=== PATIENT | female | born 1970 | race Caucasian/White ===

== ENCOUNTER 2020-01-21 11:37 | Outpatient (REF) | payer OTHER, SELFPAY ==
[2020-01-21 12:42] LABS: MANUAL DIFF FLAG NO
[2020-01-21 12:45] LABS: Basophils Percent Auto 0.6 % (0-2); Eosinophils Absolute Auto 0.1 X10*3/uL (0.0-0.4); Hematocrit 40.3 % (37-47); Hemoglobin 13.5 g/dl (12.0-16.0); Imm Gran Abs Auto 0.04 X10*3/uL (0.00-0.03); Imm Gran Pct Auto 0.6 % (0.0-0.4); Lymphocytes Absolute Auto 2.4 X10*3/uL (1.2-4.9); Lymphocytes Percent Auto 34.6 % (20-40); Mean Corpuscular HGB Conc 33.5 g/dl (31.0-35.0); Mean Corpuscular Hemoglobin 31.8 pg (27.0-33.0); Mean Corpuscular Volume 94.8 fL (80-98); Mean Platelet Volume 10.6 fL (9.4-12.3); Monocytes Absolute Auto 0.6 X10*3/uL (0.1-1.2); Monocytes Percent Auto 8.4 % (2-11); Neutrophils Absolute Auto 3.9 X10*3/uL (2.0-8.3); Neutrophils Percent Auto 54.8 % (45-73); Platelet Count 205 X10*3/uL (160-400); Red Blood Count 4.25 X10*6/uL (4.20-5.50); Red Cell Distribution Width 14.5 % (11.0-16.0)
[2020-01-21 13:12] LABS: Valproate 61.8 mcg/mL (50.0-100.0)
[2020-01-21 13:17] LABS: Alanine Aminotransferase 13 U/L (0-31); Albumin Level 4.1 g/dL (3.5-5.0); Alkaline Phosphatase 55 U/L (39-117); Amylase 74 U/L (28-100); Anion Gap 12 (12-20); Aspartate Amino Transferase 20 U/L (5-31); Bilirubin Total 0.4 mg/dL (0.0-1.0); Blood Urea Nitrogen 9 mg/dL (9-16); Calcium 9.2 mg/dL (8.4-10.2); Carbon Dioxide 30 mmol/L (22-29); Chloride 101 mmol/L (96-108); Estimated Glomerular Filt Rate > 60; Glucose Random 72 mg/dL (60-115); Potassium 4.6 mmol/l (3.3-5.1); Sodium 138 mmol/L (135-145); Total Protein 6.7 g/dL (6.5-8.0)
== END 2020-01-21 11:38 | disposition home or self-care (01) ==
LOC: HO.LAB 11:37
PROVIDERS: PCP Internal Medicine; Visit Provider Clinical Nurse Specialist Psychiatric/Mental Health, Adult
DX: Z79.899 Other long term (current) drug therapy (principal)
CPT/HCPCS: 36415; 80053; 80164; 82150; 85025

== ENCOUNTER 2020-03-19 09:34 | Outpatient (REF) | payer OTHER, SELFPAY ==
[2020-03-19 10:28] LABS: MANUAL DIFF FLAG NO
[2020-03-19 10:42] LABS: Basophils Absolute Auto 0.1 X10*3/uL (0.0-0.2); Basophils Percent Auto 0.7 % (0-2); Eosinophils Absolute Auto 0.1 X10*3/uL (0.0-0.4); Eosinophils Percent Auto 1.3 % (0-4); Hematocrit 41.5 % (37-47); Hemoglobin 13.8 g/dl (12.0-16.0); Imm Gran Abs Auto 0.04 X10*3/uL (0.00-0.03); Imm Gran Pct Auto 0.6 % (0.0-0.4); Lymphocytes Absolute Auto 1.9 X10*3/uL (1.2-4.9); Lymphocytes Percent Auto 26.6 % (20-40); Mean Corpuscular HGB Conc 33.3 g/dl (31.0-35.0); Mean Corpuscular Hemoglobin 31.3 pg (27.0-33.0); Mean Corpuscular Volume 94.1 fL (80-98); Mean Platelet Volume 10.9 fL (9.4-12.3); Monocytes Absolute Auto 0.6 X10*3/uL (0.1-1.2); Monocytes Percent Auto 8.8 % (2-11); Neutrophils Absolute Auto 4.4 X10*3/uL (2.0-8.3); Platelet Count 224 X10*3/uL (160-400); Red Blood Count 4.41 X10*6/uL (4.20-5.50); Red Cell Distribution Width 14.5 % (11.0-16.0); White Blood Count 7.1 X10*3/uL (4.8-10.8)
[2020-03-23 09:22] LABS: Clozapine (Clozaril) 117 mcg/L; Norclozapine 42 mcg/L (25-400)
== END 2020-03-19 09:35 | disposition home or self-care (01) ==
LOC: HO.LABR 09:34
PROVIDERS: PCP Internal Medicine; Visit Provider Clinical Nurse Specialist Psychiatric/Mental Health, Adult
DX: Z79.899 Other long term (current) drug therapy (principal)
CPT/HCPCS: 36415; 80159; 85025

== ENCOUNTER → 2020-04-13 09:36 | Outpatient (BNVA) | payer OTHER, SELFPAY | PROVIDERS: PCP Internal Medicine; Visit Provider Nurse Practitioner Gerontology | DX: E11.9 Type 2 diabetes mellitus without complications (principal); Z79.4 Long term (current) use of insulin; E78.5 Hyperlipidemia, unspecified; I10 Essential (primary) hypertension; E66.09 Other obesity due to excess calories; Z68.33 Body mass index [BMI] 33.0-33.9, adult | CPT/HCPCS: 82947 ==

== ENCOUNTER 2020-04-29 12:54 | Outpatient (REF) | payer OTHER, SELFPAY ==
[2020-04-29 13:19] LABS: MANUAL DIFF FLAG NO
[2020-04-29 13:25] LABS: Basophils Absolute Auto 0.1 X10*3/uL (0.0-0.2); Basophils Percent Auto 0.6 % (0-2); Eosinophils Absolute Auto 0.1 X10*3/uL (0.0-0.4); Eosinophils Percent Auto 1.1 % (0-4); Hematocrit 41.1 % (37-47); Hemoglobin 13.1 g/dl (12.0-16.0); Imm Gran Abs Auto 0.08 X10*3/uL (0.00-0.03); Lymphocytes Absolute Auto 2.6 X10*3/uL (1.2-4.9); Lymphocytes Percent Auto 33.3 % (20-40); Mean Corpuscular HGB Conc 31.9 g/dl (31.0-35.0); Mean Corpuscular Hemoglobin 30.7 pg (27.0-33.0); Mean Corpuscular Volume 96.3 fL (80-98); Mean Platelet Volume 10.6 fL (9.4-12.3); Monocytes Absolute Auto 0.7 X10*3/uL (0.1-1.2); Monocytes Percent Auto 8.2 % (2-11); Neutrophils Absolute Auto 4.4 X10*3/uL (2.0-8.3); Neutrophils Percent Auto 55.8 % (45-73); Platelet Count 227 X10*3/uL (160-400); Red Blood Count 4.27 X10*6/uL (4.20-5.50); Red Cell Distribution Width 14.6 % (11.0-16.0); White Blood Count 7.9 X10*3/uL (4.8-10.8)
== END 2020-04-29 12:55 | disposition home or self-care (01) ==
LOC: HO.LAB 12:54
PROVIDERS: Visit Provider Clinical Nurse Specialist Psychiatric/Mental Health, Adult
DX: Z79.899 Other long term (current) drug therapy (principal)
CPT/HCPCS: 36415; 85025

== ENCOUNTER 2020-05-26 08:49 | Outpatient (REF) | payer OTHER, SELFPAY ==
[2020-05-26 09:20] LABS: MANUAL DIFF FLAG NO
[2020-05-26 09:26] LABS: Basophils Percent Auto 0.6 % (0-2); Eosinophils Absolute Auto 0.1 X10*3/uL (0.0-0.4); Eosinophils Percent Auto 1.4 % (0-4); Hematocrit 42.8 % (37-47); Hemoglobin 13.8 g/dl (12.0-16.0); Imm Gran Abs Auto 0.06 X10*3/uL (0.00-0.03); Imm Gran Pct Auto 0.9 % (0.0-0.4); Lymphocytes Percent Auto 28.4 % (20-40); Mean Corpuscular HGB Conc 32.2 g/dl (31.0-35.0); Mean Corpuscular Hemoglobin 30.6 pg (27.0-33.0); Mean Corpuscular Volume 94.9 fL (80-98); Mean Platelet Volume 10.8 fL (9.4-12.3); Monocytes Absolute Auto 0.6 X10*3/uL (0.1-1.2); Monocytes Percent Auto 8.9 % (2-11); Neutrophils Absolute Auto 4.1 X10*3/uL (2.0-8.3); Neutrophils Percent Auto 59.8 % (45-73); Platelet Count 235 X10*3/uL (160-400); Red Blood Count 4.51 X10*6/uL (4.20-5.50); Red Cell Distribution Width 14.5 % (11.0-16.0); White Blood Count 6.9 X10*3/uL (4.8-10.8)
== END 2020-05-26 08:50 | disposition home or self-care (01) ==
LOC: HO.LAB 08:49
PROVIDERS: Visit Provider Clinical Nurse Specialist Psychiatric/Mental Health, Adult
DX: Z79.899 Other long term (current) drug therapy (principal)
CPT/HCPCS: 36415; 85025

== ENCOUNTER 2020-07-01 09:00 | Outpatient (REF) | payer OTHER, SELFPAY ==
[2020-07-01 09:51] LABS: MANUAL DIFF FLAG NO
[2020-07-01 09:53] LABS: Basophils Percent Auto 0.5 % (0-2); Eosinophils Absolute Auto 0.1 X10*3/uL (0.0-0.4); Eosinophils Percent Auto 0.8 % (0-4); Hematocrit 43.7 % (37-47); Hemoglobin 14.4 g/dl (12.0-16.0); Imm Gran Abs Auto 0.06 X10*3/uL (0.00-0.03); Imm Gran Pct Auto 0.8 % (0.0-0.4); Lymphocytes Absolute Auto 1.9 X10*3/uL (1.2-4.9); Mean Corpuscular Volume 94.2 fL (80-98); Mean Platelet Volume 10.7 fL (9.4-12.3); Monocytes Absolute Auto 0.6 X10*3/uL (0.1-1.2); Neut%MD 64.9 %; Neutrophils Percent Auto 64.9 % (45-73); Platelet Count 238 X10*3/uL (160-400); Red Blood Count 4.64 X10*6/uL (4.20-5.50); Red Cell Distribution Width 13.9 % (11.0-16.0); WBCANC 7.7 X10*3/uL; White Blood Count 7.7 X10*3/uL (4.8-10.8)
[2020-07-01 10:05] LABS: Estimated Average Glucose 169 mg/dL; Hemoglobin A1c % 7.5 %
[2020-07-01 10:46] LABS: Alanine Aminotransferase 14 U/L (0-31); Albumin Level 4.4 g/dL (3.5-5.0); Alkaline Phosphatase 81 U/L (39-117); Anion Gap 16 (12-20); Aspartate Amino Transferase 21 U/L (5-31); Bilirubin Total 0.2 mg/dL (0.0-1.0); Blood Urea Nitrogen 14 mg/dL (9-16); Calcium 9.7 mg/dL (8.4-10.2); Carbon Dioxide 29 mmol/L (22-29); Chloride 100 mmol/L (96-108); Cholesterol 181 mg/dL; Estimated Glomerular Filt Rate > 60; Glucose Fasting 133 mg/dL (60-99); HDL Cholesterol 47 mg/dL; LDL Cholesterol Calculated 98 mg/dl; Potassium 4.9 mmol/L (3.3-5.1); Sodium 140 mmol/L (135-145); Total Protein 7.2 g/dL (6.5-8.0); Triglycerides 180 mg/dL
[2020-07-02 06:56] LABS: LDL Cholesterol Direct 117 mg/dL (<100)
== END 2020-07-01 09:01 | disposition home or self-care (01) ==
LOC: HO.LAB 09:00
PROVIDERS: Absent Provider Clinical Nurse Specialist Psychiatric/Mental Health, Adult; PCP Internal Medicine; Visit Provider Nurse Practitioner Gerontology
DX: E11.9 Type 2 diabetes mellitus without complications (principal); Z79.899 Other long term (current) drug therapy
CPT/HCPCS: 36415; 80053; 80061; 83036; 83721; 85025; 85048

== ENCOUNTER → 2020-07-13 10:14 | Outpatient (BNVA) | payer OTHER, SELFPAY | PROVIDERS: PCP Internal Medicine; Visit Provider Nurse Practitioner Gerontology | DX: E11.9 Type 2 diabetes mellitus without complications (principal); Z79.4 Long term (current) use of insulin; E78.5 Hyperlipidemia, unspecified; I10 Essential (primary) hypertension; E66.09 Other obesity due to excess calories; Z68.33 Body mass index [BMI] 33.0-33.9, adult | CPT/HCPCS: 82947; 99212 ==

== ENCOUNTER 2020-07-21 10:21 | Outpatient (REF) | payer OTHER, SELFPAY ==
[2020-07-21 10:35] LABS: MANUAL DIFF FLAG NO
[2020-07-21 10:43] LABS: Basophils Absolute Auto 0.1 X10*3/uL (0.0-0.2); Basophils Percent Auto 0.6 % (0-2); Eosinophils Absolute Auto 0.1 X10*3/uL (0.0-0.4); Eosinophils Percent Auto 0.8 % (0-4); Hematocrit 42.2 % (37-47); Hemoglobin 13.5 g/dl (12.0-16.0); Imm Gran Abs Auto 0.11 X10*3/uL (0.00-0.03); Imm Gran Pct Auto 1.3 % (0.0-0.4); Lymphocytes Absolute Auto 2.5 X10*3/uL (1.2-4.9); Lymphocytes Percent Auto 29.7 % (20-40); Mean Corpuscular Hemoglobin 30.2 pg (27.0-33.0); Mean Corpuscular Volume 94.4 fL (80-98); Mean Platelet Volume 10.3 fL (9.4-12.3); Monocytes Absolute Auto 0.7 X10*3/uL (0.1-1.2); Monocytes Percent Auto 7.8 % (2-11); Neut%MD 59.8 %; Neutrophils Absolute Auto 5.1 X10*3/uL (2.0-8.3); Neutrophils Percent Auto 59.8 % (45-73); Platelet Count 225 X10*3/uL (160-400); Red Blood Count 4.47 X10*6/uL (4.20-5.50); Red Cell Distribution Width 13.9 % (11.0-16.0); WBCANC 8.5 X10*3/uL; White Blood Count 8.5 X10*3/uL (4.8-10.8)
== END 2020-07-21 10:22 | disposition home or self-care (01) ==
LOC: HO.LABR 10:21
PROVIDERS: PCP Internal Medicine; Visit Provider Clinical Nurse Specialist Psychiatric/Mental Health, Adult
DX: Z79.899 Other long term (current) drug therapy (principal)
CPT/HCPCS: 36415; 85025; 85048

== ENCOUNTER 2020-08-18 09:54 | Outpatient (REF) | payer OTHER, SELFPAY ==
[2020-08-18 11:25] LABS: MANUAL DIFF FLAG NO
[2020-08-18 11:36] LABS: Basophils Percent Auto 0.6 % (0-2); Eosinophils Absolute Auto 0.1 X10*3/uL (0.0-0.4); Hematocrit 43.1 % (37-47); Imm Gran Abs Auto 0.08 X10*3/uL (0.00-0.03); Imm Gran Pct Auto 1.2 % (0.0-0.4); Lymphocytes Absolute Auto 1.8 X10*3/uL (1.2-4.9); Lymphocytes Percent Auto 26.9 % (20-40); Mean Corpuscular HGB Conc 32.5 g/dl (31.0-35.0); Mean Corpuscular Volume 95.4 fL (80-98); Mean Platelet Volume 10.7 fL (9.4-12.3); Monocytes Absolute Auto 0.7 X10*3/uL (0.1-1.2); Monocytes Percent Auto 10.3 % (2-11); NRBC Pct Auto 0.3 /100WBC (0.0-0.2); Platelet Count 234 X10*3/uL (160-400); Red Blood Count 4.52 X10*6/uL (4.20-5.50); WBCANC 6.7 X10*3/uL; White Blood Count 6.7 X10*3/uL (4.8-10.8)
[2020-08-18 12:20] LABS: Vitamin D 25-OH Total 41.9 ng/mL (>30)
== END 2020-08-18 09:55 | disposition home or self-care (01) ==
LOC: HO.HMGCLDS 09:54
PROVIDERS: Absent Provider Nurse Practitioner Gerontology; PCP Internal Medicine; Referring Provider Clinical Nurse Specialist Psychiatric/Mental Health, Adult; Visit Provider Internal Medicine
DX: Z79.899 Other long term (current) drug therapy (principal)
CPT/HCPCS: 36415; 82306; 85025; 85048

== ENCOUNTER → 2020-08-31 10:57 | Outpatient (BNVA) | payer OTHER, SELFPAY | PROVIDERS: PCP Internal Medicine; Visit Provider Dietitian, Registered | DX: E11.65 Type 2 diabetes mellitus with hyperglycemia (principal); Z79.4 Long term (current) use of insulin | CPT/HCPCS: 97802 ==

== ENCOUNTER 2020-09-07 14:02 | Outpatient (REF) | payer OTHER, SELFPAY ==
--- NOTE | 2020-09-07 17:12 | PFT_ITS ---
The patient was unable to perform FVC maneuver in first two attempts, and the patient did not want to continue the test. The test has been aborted. IMPRESSION: Aborted pulmonary function test. MD SANDRO Diop/DEYVI / [phone]
== END 2020-09-07 14:03 | disposition home or self-care (01) ==
LOC: HO.RESP 14:02
PROVIDERS: PCP Nurse Practitioner Family; Visit Provider Internal Medicine
DX: Z13.89 Encounter for screening for other disorder (principal)

== ENCOUNTER 2020-09-23 10:03 | Outpatient (REF) | payer OTHER, SELFPAY ==
[2020-09-23 10:35] LABS: MANUAL DIFF FLAG NO
[2020-09-23 10:39] LABS: Basophils Percent Auto 0.6 % (0-2); Eosinophils Absolute Auto 0.1 X10*3/uL (0.0-0.4); Eosinophils Percent Auto 0.8 % (0-4); Hematocrit 45.2 % (37-47); Hemoglobin 14.6 g/dl (12.0-16.0); Imm Gran Abs Auto 0.05 X10*3/uL (0.00-0.03); Imm Gran Pct Auto 0.7 % (0.0-0.4); Lymphocytes Absolute Auto 2.1 X10*3/uL (1.2-4.9); Mean Corpuscular HGB Conc 32.3 g/dl (31.0-35.0); Mean Corpuscular Hemoglobin 30.5 pg (27.0-33.0); Mean Corpuscular Volume 94.4 fL (80-98); Mean Platelet Volume 10.7 fL (9.4-12.3); Monocytes Absolute Auto 0.6 X10*3/uL (0.1-1.2); Monocytes Percent Auto 7.8 % (2-11); Neutrophils Absolute Auto 4.3 X10*3/uL (2.0-8.3); Neutrophils Percent Auto 61.1 % (45-73); Platelet Count 231 X10*3/uL (160-400); Red Blood Count 4.79 X10*6/uL (4.20-5.50); White Blood Count 7.1 X10*3/uL (4.8-10.8)
== END 2020-09-23 10:04 | disposition home or self-care (01) ==
LOC: HO.LABR 10:03
PROVIDERS: PCP Internal Medicine; Visit Provider Clinical Nurse Specialist Psychiatric/Mental Health, Adult
DX: Z79.899 Other long term (current) drug therapy (principal)
CPT/HCPCS: 36415; 85025

== ENCOUNTER 2020-10-20 09:01 | Outpatient (REF) | payer OTHER, SELFPAY ==
[2020-10-20 11:12] LABS: MANUAL DIFF FLAG NO
[2020-10-20 11:31] LABS: Basophils Percent Auto 0.3 % (0-2); Eosinophils Absolute Auto 0.1 X10*3/uL (0.0-0.4); Eosinophils Percent Auto 0.8 % (0-4); Hematocrit 46.1 % (37-47); Hemoglobin 14.7 g/dl (12.0-16.0); Imm Gran Abs Auto 0.05 X10*3/uL (0.00-0.03); Imm Gran Pct Auto 0.8 % (0.0-0.4); Lymphocytes Absolute Auto 1.7 X10*3/uL (1.2-4.9); Lymphocytes Percent Auto 25.5 % (20-40); Mean Corpuscular HGB Conc 31.9 g/dl (31.0-35.0); Mean Corpuscular Hemoglobin 30.2 pg (27.0-33.0); Mean Corpuscular Volume 94.9 fL (80-98); Mean Platelet Volume 11.3 fL (9.4-12.3); Monocytes Absolute Auto 0.6 X10*3/uL (0.1-1.2); Monocytes Percent Auto 8.7 % (2-11); Neutrophils Absolute Auto 4.2 X10*3/uL (2.0-8.3); Neutrophils Percent Auto 63.9 % (45-73); Platelet Count 244 X10*3/uL (160-400); Red Blood Count 4.86 X10*6/uL (4.20-5.50); Red Cell Distribution Width 14.9 % (11.0-16.0); White Blood Count 6.6 X10*3/uL (4.8-10.8)
== END 2020-10-20 09:02 | disposition home or self-care (01) ==
LOC: HO.HMGCLDS 09:01
PROVIDERS: PCP Internal Medicine; Visit Provider Clinical Nurse Specialist Psychiatric/Mental Health, Adult
DX: Z79.899 Other long term (current) drug therapy (principal)
CPT/HCPCS: 36415; 85025

== ENCOUNTER → 2020-11-02 11:00 | Outpatient (BNVA) | payer OTHER, SELFPAY | PROVIDERS: PCP Internal Medicine; Visit Provider Dietitian, Registered | DX: E11.65 Type 2 diabetes mellitus with hyperglycemia (principal); Z79.4 Long term (current) use of insulin | CPT/HCPCS: 97803 ==

== ENCOUNTER 2020-11-17 10:15 | Outpatient (REF) | payer OTHER, SELFPAY ==
[2020-11-17 11:09] LABS: MANUAL DIFF FLAG NO
[2020-11-17 11:22] LABS: Basophils Percent Auto 0.4 % (0-2); Eosinophils Percent Auto 0.6 % (0-4); Hemoglobin 14.5 g/dl (12.0-16.0); Imm Gran Abs Auto 0.02 X10*3/uL (0.00-0.03); Imm Gran Pct Auto 0.3 % (0.0-0.4); Lymphocytes Absolute Auto 1.9 X10*3/uL (1.2-4.9); Lymphocytes Percent Auto 28.1 % (20-40); Mean Corpuscular Hemoglobin 30.6 pg (27.0-33.0); Mean Corpuscular Volume 92.8 fL (80-98); Mean Platelet Volume 10.8 fL (9.4-12.3); Monocytes Absolute Auto 0.6 X10*3/uL (0.1-1.2); Monocytes Percent Auto 8.2 % (2-11); Neutrophils Absolute Auto 4.2 X10*3/uL (2.0-8.3); Neutrophils Percent Auto 62.4 % (45-73); Platelet Count 227 X10*3/uL (160-400); Red Blood Count 4.74 X10*6/uL (4.20-5.50); Red Cell Distribution Width 14.7 % (11.0-16.0); White Blood Count 6.7 X10*3/uL (4.8-10.8)
[2020-11-17 12:39] LABS: Alanine Aminotransferase 13 U/L (0-31); Anion Gap 11 (12-20); Aspartate Amino Transferase 19 U/L (5-31); Blood Urea Nitrogen 13 mg/dL (9-16); Calcium 9.4 mg/dL (8.4-10.2); Carbon Dioxide 26 mmol/L (22-29); Chloride 104 mmol/L (96-108); Cholesterol 125 mg/dL; Estimated Glomerular Filt Rate > 60; HDL Cholesterol 41 mg/dL; LDL Cholesterol Calculated 70 mg/dl; Potassium 4.8 mmol/L (3.3-5.1); Sodium 136 mmol/L (135-145); Triglycerides 71 mg/dL
[2020-11-17 12:41] LABS: Glucose Fasting 61 mg/dL (60-99)
== END 2020-11-17 10:16 | disposition home or self-care (01) ==
LOC: HO.LABR 10:15
PROVIDERS: PCP Internal Medicine; Visit Provider Clinical Nurse Specialist Psychiatric/Mental Health, Adult
DX: Z79.899 Other long term (current) drug therapy (principal)
CPT/HCPCS: 36415; 80048; 80061; 84450; 84460; 85025

== ENCOUNTER → 2020-12-03 09:22 | Outpatient (BNVA) | payer OTHER, SELFPAY | PROVIDERS: PCP Internal Medicine; Visit Provider Nurse Practitioner Gerontology | DX: E11.65 Type 2 diabetes mellitus with hyperglycemia (principal); E11.9 Type 2 diabetes mellitus without complications; E11.3599 Type 2 diabetes mellitus with proliferative diabetic retinopathy without macular edema, unspecified eye; I10 Essential (primary) hypertension; E78.5 Hyperlipidemia, unspecified; E66.09 Other obesity due to excess calories; K21.9 Gastro-esophageal reflux disease without esophagitis; F17.210 Nicotine dependence, cigarettes, uncomplicated; Z68.32 Body mass index [BMI] 32.0-32.9, adult; Z88.7 Allergy status to serum and vaccine; Z88.8 Allergy status to other drugs, medicaments and biological substances; Z91.040 Latex allergy status; Z91.013 Allergy to seafood; Z79.4 Long term (current) use of insulin; Z79.899 Other long term (current) drug therapy | CPT/HCPCS: 82947; 99212 ==

== ENCOUNTER 2020-12-20 09:28 | Outpatient (REF) | payer OTHER, SELFPAY ==
[2020-12-20 10:29] LABS: MANUAL DIFF FLAG NO
[2020-12-20 10:48] LABS: Basophils Percent Auto 0.5 % (0-2); Eosinophils Percent Auto 0.3 % (0-4); Hematocrit 43.7 % (37-47); Hemoglobin 14.7 g/dl (12.0-16.0); Imm Gran Abs Auto 0.05 X10*3/uL (0.00-0.03); Imm Gran Pct Auto 0.6 % (0.0-0.4); Lymphocytes Absolute Auto 2.2 X10*3/uL (1.2-4.9); Lymphocytes Percent Auto 25.1 % (20-40); Mean Corpuscular HGB Conc 33.6 g/dl (31.0-35.0); Mean Corpuscular Hemoglobin 31.1 pg (27.0-33.0); Mean Corpuscular Volume 92.4 fL (80-98); Mean Platelet Volume 10.6 fL (9.4-12.3); Monocytes Absolute Auto 0.7 X10*3/uL (0.1-1.2); Monocytes Percent Auto 8.3 % (2-11); Neutrophils Absolute Auto 5.7 X10*3/uL (2.0-8.3); Neutrophils Percent Auto 65.2 % (45-73); Platelet Count 241 X10*3/uL (160-400); Red Blood Count 4.73 X10*6/uL (4.20-5.50); Red Cell Distribution Width 15.3 % (11.0-16.0); White Blood Count 8.7 X10*3/uL (4.8-10.8)
== END 2020-12-20 09:29 | disposition home or self-care (01) ==
LOC: HO.LABR 09:28
PROVIDERS: PCP Internal Medicine; Visit Provider Clinical Nurse Specialist Psychiatric/Mental Health, Adult
DX: Z79.899 Other long term (current) drug therapy (principal)
CPT/HCPCS: 36415; 85025

== ENCOUNTER → 2021-01-04 11:00 | Outpatient (BNVA) | payer OTHER, SELFPAY | PROVIDERS: PCP Internal Medicine; Visit Provider Dietitian, Registered | DX: E11.65 Type 2 diabetes mellitus with hyperglycemia (principal); Z79.4 Long term (current) use of insulin | CPT/HCPCS: 97803 ==

== ENCOUNTER 2021-01-15 09:12 | Outpatient (REF) | payer OTHER, SELFPAY ==
[2021-01-15 09:39] LABS: MANUAL DIFF FLAG NO
[2021-01-15 09:51] LABS: Basophils Percent Auto 0.5 % (0-2); Eosinophils Absolute Auto 0.1 X10*3/uL (0.0-0.4); Eosinophils Percent Auto 0.9 % (0-4); Hematocrit 45.8 % (37-47); Imm Gran Abs Auto 0.04 X10*3/uL (0.00-0.03); Imm Gran Pct Auto 0.5 % (0.0-0.4); Lymphocytes Absolute Auto 2.1 X10*3/uL (1.2-4.9); Lymphocytes Percent Auto 28.8 % (20-40); Mean Corpuscular HGB Conc 32.8 g/dl (31.0-35.0); Mean Corpuscular Hemoglobin 30.9 pg (27.0-33.0); Mean Corpuscular Volume 94.4 fL (80-98); Mean Platelet Volume 10.2 fL (9.4-12.3); Monocytes Absolute Auto 0.6 X10*3/uL (0.1-1.2); Monocytes Percent Auto 7.8 % (2-11); Neut%MD 61.5 %; Neutrophils Absolute Auto 4.5 X10*3/uL (2.0-8.3); Neutrophils Percent Auto 61.5 % (45-73); Platelet Count 234 X10*3/uL (160-400); Red Blood Count 4.85 X10*6/uL (4.20-5.50); Red Cell Distribution Width 15.3 % (11.0-16.0); WBCANC 7.4 X10*3/uL; White Blood Count 7.4 X10*3/uL (4.8-10.8)
== END 2021-01-15 09:13 | disposition home or self-care (01) ==
LOC: HO.LABR 09:12
PROVIDERS: PCP Internal Medicine; Visit Provider Clinical Nurse Specialist Psychiatric/Mental Health, Adult
DX: Z79.899 Other long term (current) drug therapy (principal)
CPT/HCPCS: 36415; 85025

== ENCOUNTER 2021-02-18 09:14 | Outpatient (REF) | payer OTHER, SELFPAY ==
[2021-02-18 10:45] LABS: Alanine Aminotransferase 19 U/L (0-31); Albumin Level 4.4 g/dL (3.5-5.0); Alkaline Phosphatase 77 U/L (39-117); Anion Gap 11 (12-20); Aspartate Amino Transferase 25 U/L (5-31); Bilirubin Total 0.3 mg/dL (0.0-1.0); Blood Urea Nitrogen 15 mg/dL (9-16); Calcium 9.6 mg/dL (8.4-10.2); Carbon Dioxide 32 mmol/L (22-29); Chloride 98 mmol/L (96-108); Estimated Glomerular Filt Rate > 60; Glucose Random 101 mg/dL (60-115); Potassium 4.7 mmol/L (3.3-5.1); Sodium 136 mmol/L (135-145); Total Protein 7.2 g/dL (6.5-8.0)
== END 2021-02-18 09:15 | disposition home or self-care (01) ==
LOC: HO.LAB 09:14
PROVIDERS: PCP Internal Medicine; Visit Provider Clinical Nurse Specialist Psychiatric/Mental Health, Adult
DX: Z79.899 Other long term (current) drug therapy (principal)
CPT/HCPCS: 36415; 80053; 80164

== ENCOUNTER 2021-03-01 09:34 | Outpatient (REF) | payer OTHER, SELFPAY ==
[2021-03-01 12:11] LABS: Cholesterol 117 mg/dL; HDL Cholesterol 43 mg/dL; LDL Cholesterol Calculated 58 mg/dl; Triglycerides 83 mg/dL
[2021-03-01 13:41] LABS: Estimated Average Glucose 126 mg/dL
== END 2021-03-01 09:35 | disposition home or self-care (01) ==
LOC: HO.HMGCLDS 09:34
PROVIDERS: Visit Provider Internal Medicine
DX: Z00.01 Encounter for general adult medical examination with abnormal findings (principal); E11.65 Type 2 diabetes mellitus with hyperglycemia; E78.5 Hyperlipidemia, unspecified; I10 Essential (primary) hypertension; E66.09 Other obesity due to excess calories; Z68.33 Body mass index [BMI] 33.0-33.9, adult; Z79.4 Long term (current) use of insulin
CPT/HCPCS: 36415; 80061; 82306; 83036

== ENCOUNTER 2021-03-16 09:17 | Outpatient (REF) | payer OTHER, SELFPAY ==
[2021-03-16 09:35] LABS: MANUAL DIFF FLAG NO
[2021-03-16 09:43] LABS: Basophils Percent Auto 0.6 % (0-2); Eosinophils Absolute Auto 0.1 X10*3/uL (0.0-0.4); Eosinophils Percent Auto 0.7 % (0-4); Hematocrit 46.1 % (37.0-47.0); Hemoglobin 14.8 g/dl (12.0-16.0); Imm Gran Abs Auto 0.06 X10*3/uL (0.00-0.03); Imm Gran Pct Auto 0.9 % (0.0-0.4); Lymphocytes Absolute Auto 2.1 X10*3/uL (1.2-4.9); Lymphocytes Percent Auto 29.7 % (20-40); Mean Corpuscular HGB Conc 32.1 g/dl (31.0-35.0); Mean Corpuscular Hemoglobin 30.6 pg (27.0-33.0); Mean Corpuscular Volume 95.2 fL (80.0-98.0); Monocytes Absolute Auto 0.6 X10*3/uL (0.1-1.2); Monocytes Percent Auto 9.2 % (2-11); Neutrophils Absolute Auto 4.1 x10*3/uL (2.0-8.3); Neutrophils Percent Auto 58.9 % (45-73); Platelet Count 213 X10*3/uL (160-400); Red Blood Count 4.84 X10*6/uL (4.20-5.50); Red Cell Distribution Width 14.1 % (11.0-16.0)
== END 2021-03-16 09:18 | disposition home or self-care (01) ==
LOC: HO.LABR 09:17
PROVIDERS: PCP Internal Medicine; Visit Provider Clinical Nurse Specialist Psychiatric/Mental Health, Adult
DX: Z79.899 Other long term (current) drug therapy (principal)
CPT/HCPCS: 36415; 85025

== ENCOUNTER → 2021-04-12 09:54 | Outpatient (BNVA) | payer OTHER, SELFPAY | PROVIDERS: PCP Internal Medicine; Visit Provider Dietitian, Registered | DX: E11.65 Type 2 diabetes mellitus with hyperglycemia (principal); Z79.4 Long term (current) use of insulin | CPT/HCPCS: 97803 ==

== ENCOUNTER 2021-04-21 10:55 | Outpatient (REF) | payer OTHER, SELFPAY ==
[2021-04-21 11:06] LABS: MANUAL DIFF FLAG NO
[2021-04-21 11:56] LABS: Basophils Percent Auto 0.4 % (0-2); Eosinophils Percent Auto 0.4 % (0-4); Hemoglobin 15.1 g/dl (12.0-16.0); Imm Gran Abs Auto 0.09 X10*3/uL (0.00-0.03); Imm Gran Pct Auto 0.8 % (0.0-0.4); Lymphocytes Absolute Auto 2.7 X10*3/uL (1.2-4.9); Lymphocytes Percent Auto 25.2 % (20-40); Mean Corpuscular HGB Conc 32.1 g/dl (31.0-35.0); Mean Corpuscular Volume 96.5 fL (80.0-98.0); Mean Platelet Volume 10.5 fL (9.4-12.3); Monocytes Absolute Auto 0.8 X10*3/uL (0.1-1.2); Monocytes Percent Auto 7.4 % (2-11); Neut%MD 65.8 %; Neutrophils Percent Auto 65.8 % (45-73); Platelet Count 250 X10*3/uL (160-400); Red Blood Count 4.87 X10*6/uL (4.20-5.50); Red Cell Distribution Width 14.3 % (11.0-16.0); WBCANC 10.6 X10*3/uL; White Blood Count 10.6 X10*3/uL (4.8-10.8)
== END 2021-04-21 10:56 | disposition home or self-care (01) ==
LOC: HO.LABR 10:55
PROVIDERS: PCP Internal Medicine; Visit Provider Clinical Nurse Specialist Psychiatric/Mental Health, Adult
DX: Z79.899 Other long term (current) drug therapy (principal)
CPT/HCPCS: 36415; 85025

== ENCOUNTER 2021-05-19 09:42 | Outpatient (REF) | payer OTHER, SELFPAY ==
[2021-05-19 10:04] LABS: MANUAL DIFF FLAG NO
[2021-05-19 10:36] LABS: Basophils Absolute Auto 0.1 X10*3/uL (0.0-0.2); Basophils Percent Auto 0.5 % (0-2); Eosinophils Absolute Auto 0.1 X10*3/uL (0.0-0.4); Eosinophils Percent Auto 0.9 % (0-4); Hematocrit 45.6 % (37.0-47.0); Hemoglobin 14.9 g/dl (12.0-16.0); Imm Gran Abs Auto 0.05 X10*3/uL (0.00-0.03); Imm Gran Pct Auto 0.5 % (0.0-0.4); Lymphocytes Absolute Auto 2.3 X10*3/uL (1.2-4.9); Mean Corpuscular HGB Conc 32.7 g/dl (31.0-35.0); Mean Corpuscular Hemoglobin 30.8 pg (27.0-33.0); Mean Corpuscular Volume 94.2 fL (80.0-98.0); Mean Platelet Volume 10.5 fL (9.4-12.3); Monocytes Absolute Auto 0.7 X10*3/uL (0.1-1.2); Monocytes Percent Auto 6.5 % (2-11); Neut%MD 69.6 %; Neutrophils Absolute Auto 7.3 x10*3/uL (2.0-8.3); Neutrophils Percent Auto 69.6 % (45-73); Platelet Count 248 X10*3/uL (160-400); Red Blood Count 4.84 X10*6/uL (4.20-5.50); WBCANC 10.4 X10*3/uL; White Blood Count 10.4 X10*3/uL (4.8-10.8)
== END 2021-05-19 09:43 | disposition home or self-care (01) ==
LOC: HO.LABR 09:42
PROVIDERS: PCP Internal Medicine; Visit Provider Clinical Nurse Specialist Psychiatric/Mental Health, Adult
DX: Z79.899 Other long term (current) drug therapy (principal)
CPT/HCPCS: 36415; 85025

== ENCOUNTER 2021-06-16 09:53 | Outpatient (REF) | payer OTHER, SELFPAY ==
[2021-06-16 10:13] LABS: MANUAL DIFF FLAG NO
[2021-06-16 10:31] LABS: Basophils Percent Auto 0.5 % (0-2); Eosinophils Absolute Auto 0.1 X10*3/uL (0.0-0.4); Eosinophils Percent Auto 1.1 % (0-4); Hematocrit 49.9 % (37.0-47.0); Hemoglobin 16.1 g/dl (12.0-16.0); Imm Gran Abs Auto 0.05 X10*3/uL (0.00-0.03); Imm Gran Pct Auto 0.6 % (0.0-0.4); Lymphocytes Percent Auto 25.5 % (20-40); Mean Corpuscular HGB Conc 32.3 g/dl (31.0-35.0); Mean Corpuscular Hemoglobin 30.5 pg (27.0-33.0); Mean Corpuscular Volume 94.5 fL (80.0-98.0); Mean Platelet Volume 10.4 fL (9.4-12.3); Monocytes Absolute Auto 0.6 X10*3/uL (0.1-1.2); Monocytes Percent Auto 7.4 % (2-11); Neutrophils Absolute Auto 5.2 x10*3/uL (2.0-8.3); Neutrophils Percent Auto 64.9 % (45-73); Platelet Count 238 X10*3/uL (160-400); Red Blood Count 5.28 X10*6/uL (4.20-5.50); Red Cell Distribution Width 14.6 % (11.0-16.0)
== END 2021-06-16 09:54 | disposition home or self-care (01) ==
LOC: HO.LABR 09:53
PROVIDERS: PCP Internal Medicine; Visit Provider Clinical Nurse Specialist Psychiatric/Mental Health, Adult
DX: Z79.899 Other long term (current) drug therapy (principal)
CPT/HCPCS: 36415; 85025

== ENCOUNTER → 2021-07-12 09:53 | Outpatient (BNVA) | payer OTHER, SELFPAY | PROVIDERS: PCP Internal Medicine; Visit Provider Dietitian, Registered | DX: E11.65 Type 2 diabetes mellitus with hyperglycemia (principal); Z79.4 Long term (current) use of insulin; Z71.3 Dietary counseling and surveillance | CPT/HCPCS: 97803 ==

== ENCOUNTER 2021-07-14 09:10 | Outpatient (REF) | payer OTHER, SELFPAY ==
[2021-07-14 09:37] LABS: MANUAL DIFF FLAG NO
[2021-07-14 10:02] LABS: Basophils Percent Auto 0.6 % (0-2); Eosinophils Absolute Auto 0.1 X10*3/uL (0.0-0.4); Eosinophils Percent Auto 0.8 % (0-4); Hematocrit 47.4 % (37.0-47.0); Hemoglobin 15.6 g/dl (12.0-16.0); Imm Gran Abs Auto 0.04 X10*3/uL (0.00-0.03); Imm Gran Pct Auto 0.6 % (0.0-0.4); Lymphocytes Absolute Auto 1.9 X10*3/uL (1.2-4.9); Lymphocytes Percent Auto 28.5 % (20-40); Mean Corpuscular HGB Conc 32.9 g/dl (31.0-35.0); Mean Corpuscular Hemoglobin 30.8 pg (27.0-33.0); Mean Corpuscular Volume 93.7 fL (80.0-98.0); Mean Platelet Volume 10.9 fL (9.4-12.3); Monocytes Absolute Auto 0.5 X10*3/uL (0.1-1.2); Monocytes Percent Auto 8.2 % (2-11); Neutrophils Percent Auto 61.3 % (45-73); Platelet Count 213 X10*3/uL (160-400); Red Blood Count 5.06 X10*6/uL (4.20-5.50); Red Cell Distribution Width 14.6 % (11.0-16.0); White Blood Count 6.6 X10*3/uL (4.8-10.8)
== END 2021-07-14 09:11 | disposition home or self-care (01) ==
LOC: HO.LABR 09:10
PROVIDERS: PCP Internal Medicine; Visit Provider Clinical Nurse Specialist Psychiatric/Mental Health, Adult
DX: Z79.899 Other long term (current) drug therapy (principal)
CPT/HCPCS: 36415; 85025

== ENCOUNTER 2021-08-11 10:11 | Outpatient (REF) | payer OTHER, SELFPAY ==
[2021-08-11 10:24] LABS: MANUAL DIFF FLAG NO
[2021-08-11 10:52] LABS: Basophils Percent Auto 0.6 % (0-2); Eosinophils Percent Auto 0.4 % (0-4); Hematocrit 47.3 % (37.0-47.0); Hemoglobin 15.6 g/dl (12.0-16.0); Imm Gran Abs Auto 0.08 X10*3/uL (0.00-0.03); Imm Gran Pct Auto 1.1 % (0.0-0.4); Lymphocytes Percent Auto 26.9 % (20-40); Mean Corpuscular Hemoglobin 31.1 pg (27.0-33.0); Mean Corpuscular Volume 94.2 fL (80.0-98.0); Mean Platelet Volume 10.7 fL (9.4-12.3); Monocytes Absolute Auto 0.6 X10*3/uL (0.1-1.2); Monocytes Percent Auto 8.3 % (2-11); Neutrophils Absolute Auto 4.6 x10*3/uL (2.0-8.3); Neutrophils Percent Auto 62.7 % (45-73); Platelet Count 214 X10*3/uL (160-400); Red Blood Count 5.02 X10*6/uL (4.20-5.50); Red Cell Distribution Width 15.3 % (11.0-16.0); White Blood Count 7.3 X10*3/uL (4.8-10.8)
== END 2021-08-11 10:12 | disposition home or self-care (01) ==
LOC: HO.LABR 10:11
PROVIDERS: PCP Internal Medicine; Visit Provider Clinical Nurse Specialist Psychiatric/Mental Health, Adult
DX: Z79.899 Other long term (current) drug therapy (principal)
CPT/HCPCS: 36415; 85025

== ENCOUNTER → 2021-08-16 10:28 | Outpatient (BNVA) | payer OTHER, SELFPAY | PROVIDERS: PCP Internal Medicine; Visit Provider Nurse Practitioner Gerontology | DX: E11.9 Type 2 diabetes mellitus without complications (principal); E78.5 Hyperlipidemia, unspecified; E66.09 Other obesity due to excess calories; I10 Essential (primary) hypertension; Z79.4 Long term (current) use of insulin; Z68.30 Body mass index [BMI] 30.0-30.9, adult | CPT/HCPCS: 82947; 83036 ==

== ENCOUNTER 2021-08-30 11:39 | Outpatient (REF) | payer OTHER, SELFPAY ==
[2021-08-30 14:01] LABS: Alanine Aminotransferase 17 U/L (0-31); Anion Gap 16 (12-20); Aspartate Amino Transferase 18 U/L (5-31); Blood Urea Nitrogen 10 mg/dL (9-16); Carbon Dioxide 26 mmol/L (22-29); Chloride 101 mmol/L (96-108); Cholesterol 152 mg/dL; Estimated Glomerular Filt Rate > 60; Glucose Fasting 152 mg/dL (60-99); HDL Cholesterol 38 mg/dL; LDL Cholesterol Calculated 85 mg/dl; Sodium 138 mmol/L (135-145); Triglycerides 147 mg/dL
[2021-08-30 14:22] LABS: Vitamin D 25-OH Total 49.8 ng/mL (>30)
== END 2021-08-30 11:40 | disposition home or self-care (01) ==
LOC: HO.HMGCLDS 11:39
PROVIDERS: PCP Internal Medicine; Visit Provider Internal Medicine
DX: E66.09 Other obesity due to excess calories (principal); Z68.33 Body mass index [BMI] 33.0-33.9, adult; I10 Essential (primary) hypertension; E78.5 Hyperlipidemia, unspecified; F17.210 Nicotine dependence, cigarettes, uncomplicated
CPT/HCPCS: 36415; 80048; 80061; 82306; 84450; 84460

== ENCOUNTER 2021-09-14 09:35 | Outpatient (REF) | payer OTHER, SELFPAY ==
[2021-09-14 09:54] LABS: MANUAL DIFF FLAG NO
[2021-09-14 10:04] LABS: Basophils Percent Auto 0.6 % (0-2); Eosinophils Percent Auto 0.6 % (0-4); Hematocrit 46.9 % (37.0-47.0); Hemoglobin 15.2 g/dl (12.0-16.0); Imm Gran Abs Auto 0.04 X10*3/uL (0.00-0.03); Imm Gran Pct Auto 0.6 % (0.0-0.4); Lymphocytes Absolute Auto 1.9 X10*3/uL (1.2-4.9); Lymphocytes Percent Auto 29.6 % (20-40); Mean Corpuscular HGB Conc 32.4 g/dl (31.0-35.0); Mean Corpuscular Hemoglobin 30.8 pg (27.0-33.0); Mean Corpuscular Volume 94.9 fL (80.0-98.0); Mean Platelet Volume 10.5 fL (9.4-12.3); Monocytes Absolute Auto 0.6 X10*3/uL (0.1-1.2); Monocytes Percent Auto 9.7 % (2-11); Neutrophils Absolute Auto 3.7 x10*3/uL (2.0-8.3); Neutrophils Percent Auto 58.9 % (45-73); Platelet Count 216 X10*3/uL (160-400); Red Blood Count 4.94 X10*6/uL (4.20-5.50); Red Cell Distribution Width 15.3 % (11.0-16.0); White Blood Count 6.3 X10*3/uL (4.8-10.8)
== END 2021-09-14 09:36 | disposition home or self-care (01) ==
LOC: HO.LABR 09:35
PROVIDERS: PCP Internal Medicine; Visit Provider Clinical Nurse Specialist Psychiatric/Mental Health, Adult
DX: Z79.899 Other long term (current) drug therapy (principal)
CPT/HCPCS: 36415; 85025

== ENCOUNTER → 2021-10-11 09:46 | Outpatient (BNVA) | payer OTHER, SELFPAY | PROVIDERS: PCP Internal Medicine; Visit Provider Dietitian, Registered | DX: E11.65 Type 2 diabetes mellitus with hyperglycemia (principal); Z79.4 Long term (current) use of insulin; Z71.3 Dietary counseling and surveillance | CPT/HCPCS: 97803 ==

== ENCOUNTER 2021-10-17 09:17 | Outpatient (REF) | payer OTHER, SELFPAY ==
[2021-10-17 09:38] LABS: MANUAL DIFF FLAG NO
[2021-10-17 10:09] LABS: Basophils Percent Auto 0.4 % (0-2); Eosinophils Absolute Auto 0.1 X10*3/uL (0.0-0.4); Eosinophils Percent Auto 0.7 % (0-4); Hematocrit 46.2 % (37.0-47.0); Hemoglobin 15.4 g/dl (12.0-16.0); Imm Gran Abs Auto 0.04 X10*3/uL (0.00-0.03); Imm Gran Pct Auto 0.6 % (0.0-0.4); Lymphocytes Percent Auto 27.7 % (20-40); Mean Corpuscular HGB Conc 33.3 g/dl (31.0-35.0); Mean Corpuscular Hemoglobin 31.2 pg (27.0-33.0); Mean Corpuscular Volume 93.7 fL (80.0-98.0); Mean Platelet Volume 10.6 fL (9.4-12.3); Monocytes Absolute Auto 0.6 X10*3/uL (0.1-1.2); Monocytes Percent Auto 7.7 % (2-11); Neut%MD 62.9 %; Neutrophils Absolute Auto 4.5 x10*3/uL (2.0-8.3); Neutrophils Percent Auto 62.9 % (45-73); Platelet Count 217 X10*3/uL (160-400); Red Blood Count 4.93 X10*6/uL (4.20-5.50); Red Cell Distribution Width 14.7 % (11.0-16.0); WBCANC 7.1 X10*3/uL; White Blood Count 7.1 X10*3/uL (4.8-10.8)
== END 2021-10-17 09:18 | disposition home or self-care (01) ==
LOC: HO.LABR 09:17
PROVIDERS: PCP Internal Medicine; Visit Provider Clinical Nurse Specialist Psychiatric/Mental Health, Adult
DX: Z79.899 Other long term (current) drug therapy (principal)
CPT/HCPCS: 36415; 85025

== ENCOUNTER 2021-11-10 09:30 | Outpatient (REF) | payer OTHER, SELFPAY ==
[2021-11-10 09:44] LABS: MANUAL DIFF FLAG NO
[2021-11-10 10:14] LABS: Basophils Absolute Auto 0.1 X10*3/uL (0.0-0.2); Basophils Percent Auto 0.8 % (0-2); Eosinophils Absolute Auto 0.1 X10*3/uL (0.0-0.4); Eosinophils Percent Auto 0.8 % (0-4); Hematocrit 48.5 % (37.0-47.0); Hemoglobin 15.8 g/dl (12.0-16.0); Imm Gran Abs Auto 0.07 X10*3/uL (0.00-0.03); Imm Gran Pct Auto 0.9 % (0.0-0.4); Lymphocytes Absolute Auto 2.1 X10*3/uL (1.2-4.9); Lymphocytes Percent Auto 26.7 % (20-40); Mean Corpuscular HGB Conc 32.6 g/dl (31.0-35.0); Mean Corpuscular Hemoglobin 30.9 pg (27.0-33.0); Mean Corpuscular Volume 94.9 fL (80.0-98.0); Mean Platelet Volume 10.8 fL (9.4-12.3); Monocytes Absolute Auto 0.6 X10*3/uL (0.1-1.2); Monocytes Percent Auto 8.3 % (2-11); Neutrophils Absolute Auto 4.8 x10*3/uL (2.0-8.3); Neutrophils Percent Auto 62.5 % (45-73); Platelet Count 240 X10*3/uL (160-400); Red Blood Count 5.11 X10*6/uL (4.20-5.50); Red Cell Distribution Width 14.8 % (11.0-16.0); White Blood Count 7.7 X10*3/uL (4.8-10.8)
== END 2021-11-10 09:31 | disposition home or self-care (01) ==
LOC: HO.LAB 09:30
PROVIDERS: PCP Internal Medicine; Visit Provider Clinical Nurse Specialist Psychiatric/Mental Health, Adult
DX: Z79.899 Other long term (current) drug therapy (principal)
CPT/HCPCS: 36415; 85025

== ENCOUNTER 2021-12-15 10:08 | Outpatient (REF) | payer OTHER, SELFPAY | END 2021-12-15 10:09 | disposition home or self-care (01) | LOC: HO.LAB 10:08 | PROVIDERS: PCP Internal Medicine; Visit Provider Clinical Nurse Specialist Psychiatric/Mental Health, Adult | DX: Z13.89 Encounter for screening for other disorder (principal) ==

== ENCOUNTER 2022-01-06 10:10 | Outpatient (REF) | payer OTHER, SELFPAY ==
[2022-01-06 10:31] LABS: MANUAL DIFF FLAG NO
[2022-01-06 11:30] LABS: Basophils Absolute Auto 0.1 X10*3/uL (0.0-0.2); Basophils Percent Auto 0.6 % (0-2); Eosinophils Absolute Auto 0.3 X10*3/uL (0.0-0.4); Eosinophils Percent Auto 3.2 % (0-4); Hemoglobin 15.1 g/dl (12.0-16.0); Imm Gran Abs Auto 0.22 X10*3/uL (0.00-0.03); Imm Gran Pct Auto 2.2 % (0.0-0.4); Lymphocytes Percent Auto 19.8 % (20-40); Mean Corpuscular HGB Conc 32.1 g/dl (31.0-35.0); Mean Corpuscular Hemoglobin 30.1 pg (27.0-33.0); Mean Corpuscular Volume 93.6 fL (80.0-98.0); Monocytes Absolute Auto 0.7 X10*3/uL (0.1-1.2); Monocytes Percent Auto 6.9 % (2-11); Neut%MD 67.3 %; Neutrophils Absolute Auto 6.8 x10*3/uL (2.0-8.3); Neutrophils Percent Auto 67.3 % (45-73); Platelet Count 298 X10*3/uL (160-400); Red Blood Count 5.02 X10*6/uL (4.20-5.50); Red Cell Distribution Width 13.8 % (11.0-16.0); WBCANC 10.1 X10*3/uL; White Blood Count 10.1 X10*3/uL (4.8-10.8)
== END 2022-01-06 10:11 | disposition home or self-care (01) ==
LOC: HO.LABR 10:10
PROVIDERS: Visit Provider Clinical Nurse Specialist Psychiatric/Mental Health, Adult
DX: Z79.899 Other long term (current) drug therapy (principal)
CPT/HCPCS: 36415; 85025

== ENCOUNTER 2022-01-26 10:04 | Outpatient (REF) | payer OTHER, SELFPAY ==
[2022-01-26 10:27] LABS: MANUAL DIFF FLAG NO
[2022-01-26 11:58] LABS: Basophils Absolute Auto 0.1 X10*3/uL (0.0-0.2); Basophils Percent Auto 0.5 % (0-2); Eosinophils Absolute Auto 0.2 X10*3/uL (0.0-0.4); Eosinophils Percent Auto 2.1 % (0-4); Hematocrit 47.6 % (37.0-47.0); Hemoglobin 15.6 g/dl (12.0-16.0); Imm Gran Abs Auto 0.05 X10*3/uL (0.00-0.03); Imm Gran Pct Auto 0.4 % (0.0-0.4); Lymphocytes Absolute Auto 1.5 X10*3/uL (1.2-4.9); Lymphocytes Percent Auto 13.4 % (20-40); Mean Corpuscular HGB Conc 32.8 g/dl (31.0-35.0); Mean Corpuscular Hemoglobin 30.8 pg (27.0-33.0); Mean Corpuscular Volume 93.9 fL (80.0-98.0); Mean Platelet Volume 11.2 fL (9.4-12.3); Monocytes Absolute Auto 0.9 X10*3/uL (0.1-1.2); Monocytes Percent Auto 7.9 % (2-11); Neut%MD 75.7 %; Neutrophils Absolute Auto 8.7 x10*3/uL (2.0-8.3); Neutrophils Percent Auto 75.7 % (45-73); Platelet Count 227 X10*3/uL (160-400); Red Blood Count 5.07 X10*6/uL (4.20-5.50); Red Cell Distribution Width 14.4 % (11.0-16.0); WBCANC 11.5 X10*3/uL; White Blood Count 11.5 X10*3/uL (4.8-10.8)
== END 2022-01-26 10:05 | disposition home or self-care (01) ==
LOC: HO.LABR 10:04
PROVIDERS: PCP Internal Medicine; Visit Provider Clinical Nurse Specialist Psychiatric/Mental Health, Adult
DX: Z79.899 Other long term (current) drug therapy (principal)
CPT/HCPCS: 36415; 85025

== ENCOUNTER 2022-02-16 10:57 | Outpatient (REF) | payer OTHER, SELFPAY ==
[2022-02-16 11:13] LABS: MANUAL DIFF FLAG NO
[2022-02-16 12:03] LABS: Basophils Percent Auto 0.5 % (0-2); Eosinophils Absolute Auto 0.1 X10*3/uL (0.0-0.4); Eosinophils Percent Auto 1.8 % (0-4); Hemoglobin 14.6 g/dl (12.0-16.0); Imm Gran Abs Auto 0.03 X10*3/uL (0.00-0.03); Imm Gran Pct Auto 0.4 % (0.0-0.4); Lymphocytes Absolute Auto 2.7 X10*3/uL (1.2-4.9); Lymphocytes Percent Auto 34.3 % (20-40); Mean Corpuscular HGB Conc 32.4 g/dl (31.0-35.0); Mean Corpuscular Hemoglobin 30.5 pg (27.0-33.0); Mean Corpuscular Volume 93.9 fL (80.0-98.0); Mean Platelet Volume 11.2 fL (9.4-12.3); Monocytes Absolute Auto 0.6 X10*3/uL (0.1-1.2); Monocytes Percent Auto 6.9 % (2-11); Neutrophils Absolute Auto 4.5 x10*3/uL (2.0-8.3); Neutrophils Percent Auto 56.1 % (45-73); Platelet Count 255 X10*3/uL (160-400); Red Blood Count 4.79 X10*6/uL (4.20-5.50); Red Cell Distribution Width 14.6 % (11.0-16.0)
== END 2022-02-16 10:58 | disposition home or self-care (01) ==
LOC: HO.LABR 10:57
PROVIDERS: Visit Provider Clinical Nurse Specialist Psychiatric/Mental Health, Adult
DX: Z79.899 Other long term (current) drug therapy (principal)
CPT/HCPCS: 36415; 85025

== ENCOUNTER 2022-03-23 13:48 | Outpatient (REF) | payer OTHER, SELFPAY ==
[2022-03-23 14:02] LABS: MANUAL DIFF FLAG NO
[2022-03-23 14:34] LABS: Basophils Percent Auto 0.3 % (0-2); Eosinophils Percent Auto 0.3 % (0-4); Hematocrit 44.3 % (37.0-47.0); Hemoglobin 14.6 g/dl (12.0-16.0); Imm Gran Abs Auto 0.05 X10*3/uL (0.00-0.03); Imm Gran Pct Auto 0.4 % (0.0-0.4); Lymphocytes Percent Auto 25.8 % (20-40); Mean Corpuscular Hemoglobin 30.9 pg (27.0-33.0); Mean Corpuscular Volume 93.7 fL (80.0-98.0); Mean Platelet Volume 10.6 fL (9.4-12.3); Monocytes Absolute Auto 0.9 X10*3/uL (0.1-1.2); Monocytes Percent Auto 7.3 % (2-11); Neut%MD 65.9 %; Neutrophils Absolute Auto 7.7 x10*3/uL (2.0-8.3); Neutrophils Percent Auto 65.9 % (45-73); Platelet Count 269 X10*3/uL (160-400); Red Blood Count 4.73 X10*6/uL (4.20-5.50); Red Cell Distribution Width 14.5 % (11.0-16.0); WBCANC 11.7 X10*3/uL; White Blood Count 11.7 X10*3/uL (4.8-10.8)
[2022-03-23 15:22] LABS: Estimated Average Glucose 140 mg/dL; Hemoglobin A1c % 6.5 %
[2022-03-23 15:38] LABS: Alanine Aminotransferase 13 U/L (0-31); Anion Gap 14 (12-20); Aspartate Amino Transferase 19 U/L (5-31); Blood Urea Nitrogen 18 mg/dL (9-16); Calcium 9.5 mg/dL (8.4-10.2); Carbon Dioxide 27 mmol/L (22-29); Chloride 100 mmol/L (96-108); Cholesterol 138 mg/dL; Estimated Glomerular Filt Rate > 60; Glucose Fasting 68 mg/dL (60-99); HDL Cholesterol 41 mg/dL; LDL Cholesterol Calculated 74 mg/dl; Sodium 137 mmol/L (135-145); Triglycerides 116 mg/dL; Vitamin D 25-OH Total 46.9 ng/mL (>30)
== END 2022-03-23 13:49 | disposition home or self-care (01) ==
LOC: HO.LAB 13:48
PROVIDERS: Internal Medicine; PCP Nurse Practitioner Family; Visit Provider Clinical Nurse Specialist Psychiatric/Mental Health, Adult
DX: E11.65 Type 2 diabetes mellitus with hyperglycemia (principal); Z79.899 Other long term (current) drug therapy; Z79.4 Long term (current) use of insulin
CPT/HCPCS: 36415; 80048; 80061; 82306; 83036; 84450; 84460; 85025

== ENCOUNTER 2022-04-13 13:54 | Outpatient (REF) | payer OTHER, SELFPAY ==
[2022-04-13 14:10] LABS: MANUAL DIFF FLAG NO
[2022-04-13 14:31] LABS: Basophils Absolute Auto 0.1 X10*3/uL (0.0-0.2); Basophils Percent Auto 0.5 % (0-2); Eosinophils Absolute Auto 0.1 X10*3/uL (0.0-0.4); Eosinophils Percent Auto 0.6 % (0-4); Hematocrit 42.9 % (37.0-47.0); Imm Gran Abs Auto 0.06 X10*3/uL (0.00-0.03); Imm Gran Pct Auto 0.6 % (0.0-0.4); Lymphocytes Absolute Auto 3.1 X10*3/uL (1.2-4.9); Lymphocytes Percent Auto 31.4 % (20-40); Mean Corpuscular HGB Conc 32.6 g/dl (31.0-35.0); Mean Corpuscular Hemoglobin 30.8 pg (27.0-33.0); Mean Corpuscular Volume 94.5 fL (80.0-98.0); Mean Platelet Volume 10.3 fL (9.4-12.3); Monocytes Absolute Auto 0.7 X10*3/uL (0.1-1.2); Monocytes Percent Auto 6.7 % (2-11); Neutrophils Percent Auto 60.2 % (45-73); Platelet Count 250 X10*3/uL (160-400); Red Blood Count 4.54 X10*6/uL (4.20-5.50); Red Cell Distribution Width 14.5 % (11.0-16.0)
[2022-04-13 15:01] LABS: Creatinine Urine 36.38 mg/dL; Microalbumin Urine < 5.0 mg/L
== END 2022-04-13 13:55 | disposition home or self-care (01) ==
LOC: HO.LABR 13:54
PROVIDERS: Internal Medicine; Visit Provider Clinical Nurse Specialist Psychiatric/Mental Health, Adult
DX: E11.65 Type 2 diabetes mellitus with hyperglycemia (principal); Z79.4 Long term (current) use of insulin; Z79.899 Other long term (current) drug therapy
CPT/HCPCS: 36415; 82043; 85025

== ENCOUNTER → 2022-05-02 10:41 | Outpatient (BNVA) | payer OTHER, SELFPAY | PROVIDERS: PCP Internal Medicine; Visit Provider Dietitian, Registered | DX: E11.65 Type 2 diabetes mellitus with hyperglycemia (principal); Z79.4 Long term (current) use of insulin | CPT/HCPCS: 97803 ==

== ENCOUNTER 2022-05-18 12:27 | Outpatient (REF) | payer OTHER, SELFPAY ==
[2022-05-18 12:47] LABS: MANUAL DIFF FLAG NO
[2022-05-18 13:10] LABS: Basophils Absolute Auto 0.1 X10*3/uL (0.0-0.2); Basophils Percent Auto 0.6 % (0-2); Eosinophils Percent Auto 0.3 % (0-4); Hematocrit 43.8 % (37.0-47.0); Hemoglobin 14.4 g/dl (12.0-16.0); Imm Gran Abs Auto 0.09 X10*3/uL (0.00-0.03); Lymphocytes Absolute Auto 2.9 X10*3/uL (1.2-4.9); Lymphocytes Percent Auto 31.4 % (20-40); Mean Corpuscular HGB Conc 32.9 g/dl (31.0-35.0); Mean Corpuscular Hemoglobin 30.6 pg (27.0-33.0); Mean Platelet Volume 10.1 fL (9.4-12.3); Monocytes Absolute Auto 0.7 X10*3/uL (0.1-1.2); Monocytes Percent Auto 7.8 % (2-11); Neutrophils Absolute Auto 5.5 x10*3/uL (2.0-8.3); Neutrophils Percent Auto 58.9 % (45-73); Platelet Count 423 X10*3/uL (160-400); Red Blood Count 4.71 X10*6/uL (4.20-5.50); Red Cell Distribution Width 13.5 % (11.0-16.0); White Blood Count 9.3 X10*3/uL (4.8-10.8)
== END 2022-05-18 12:28 | disposition home or self-care (01) ==
LOC: HO.LABR 12:27
PROVIDERS: PCP Internal Medicine; Visit Provider Clinical Nurse Specialist Psychiatric/Mental Health, Adult
DX: Z79.899 Other long term (current) drug therapy (principal)
CPT/HCPCS: 36415; 85025

== ENCOUNTER 2022-05-25 14:05 | Outpatient (REF) | payer OTHER, SELFPAY ==
[2022-05-25 14:58] LABS: Valproate 42.1 mcg/mL (50.0-100.0)
[2022-05-25 15:02] LABS: Alanine Aminotransferase 11 U/L (0-31); Albumin Level 3.6 g/dL (3.5-5.0); Alkaline Phosphatase 119 U/L (39-117); Anion Gap 14 (12-20); Aspartate Amino Transferase 16 U/L (5-31); Bilirubin Total 0.3 mg/dL (0.0-1.0); Blood Urea Nitrogen 12 mg/dL (9-16); Calcium 8.8 mg/dL (8.4-10.2); Carbon Dioxide 25 mmol/L (22-29); Chloride 107 mmol/L (96-108); Estimated Glomerular Filt Rate > 60; Glucose Random 102 mg/dL (60-115); Sodium 141 mmol/L (135-145); Total Protein 6.2 g/dL (6.5-8.0)
== END 2022-05-25 14:06 | disposition home or self-care (01) ==
LOC: HO.LAB 14:05
PROVIDERS: PCP Internal Medicine; Visit Provider Clinical Nurse Specialist Psychiatric/Mental Health, Adult
DX: Z79.899 Other long term (current) drug therapy (principal)
CPT/HCPCS: 36415; 80053; 80164

== ENCOUNTER → 2022-06-01 14:07 | Outpatient (BNVA) | payer OTHER, SELFPAY | PROVIDERS: PCP Internal Medicine; Visit Provider Internal Medicine Endocrinology, Diabetes & Metabolism | DX: E11.65 Type 2 diabetes mellitus with hyperglycemia (principal); E11.3599 Type 2 diabetes mellitus with proliferative diabetic retinopathy without macular edema, unspecified eye; Z79.4 Long term (current) use of insulin | CPT/HCPCS: 82947; 99212 ==

== ENCOUNTER 2022-07-06 11:46 | Outpatient (REF) | payer OTHER, SELFPAY ==
[2022-07-06 12:02] LABS: MANUAL DIFF FLAG NO
[2022-07-06 13:26] LABS: Basophils Percent Auto 0.5 % (0-2); Eosinophils Absolute Auto 0.1 X10*3/uL (0.0-0.4); Eosinophils Percent Auto 0.7 % (0-4); Hematocrit 46.4 % (37.0-47.0); Hemoglobin 15.3 g/dl (12.0-16.0); Imm Gran Abs Auto 0.03 X10*3/uL (0.00-0.03); Imm Gran Pct Auto 0.4 % (0.0-0.4); Lymphocytes Absolute Auto 2.8 X10*3/uL (1.2-4.9); Lymphocytes Percent Auto 36.6 % (20-40); Mean Corpuscular Hemoglobin 31.2 pg (27.0-33.0); Mean Corpuscular Volume 94.7 fL (80.0-98.0); Mean Platelet Volume 10.5 fL (9.4-12.3); Monocytes Absolute Auto 0.5 X10*3/uL (0.1-1.2); Monocytes Percent Auto 6.9 % (2-11); Neutrophils Absolute Auto 4.2 x10*3/uL (2.0-8.3); Neutrophils Percent Auto 54.9 % (45-73); Platelet Count 238 X10*3/uL (160-400); Red Cell Distribution Width 14.9 % (11.0-16.0); White Blood Count 7.6 X10*3/uL (4.8-10.8)
[2022-07-11 05:09] LABS: Clozapine (Clozaril) 61 mcg/L; Norclozapine 30 mcg/L (25-400)
== END 2022-07-06 11:47 | disposition home or self-care (01) ==
LOC: HO.LAB 11:46
PROVIDERS: Visit Provider Clinical Nurse Specialist Psychiatric/Mental Health, Adult
DX: Z79.899 Other long term (current) drug therapy (principal)
CPT/HCPCS: 36415; 80159; 85025

== ENCOUNTER 2022-08-03 12:09 | Outpatient (REF) | payer OTHER, SELFPAY ==
[2022-08-03 12:25] LABS: MANUAL DIFF FLAG NO
[2022-08-03 12:30] LABS: Basophils Percent Auto 0.5 % (0-2); Eosinophils Absolute Auto 0.1 X10*3/uL (0.0-0.4); Eosinophils Percent Auto 0.6 % (0-4); Hematocrit 45.8 % (37.0-47.0); Hemoglobin 15.2 g/dl (12.0-16.0); Imm Gran Abs Auto 0.03 X10*3/uL (0.00-0.03); Imm Gran Pct Auto 0.3 % (0.0-0.4); Lymphocytes Absolute Auto 3.2 X10*3/uL (1.2-4.9); Mean Corpuscular HGB Conc 33.2 g/dl (31.0-35.0); Mean Corpuscular Volume 93.5 fL (80.0-98.0); Mean Platelet Volume 9.8 fL (9.4-12.3); Monocytes Absolute Auto 0.8 X10*3/uL (0.1-1.2); Monocytes Percent Auto 8.6 % (2-11); Neutrophils Absolute Auto 4.6 x10*3/uL (2.0-8.3); Platelet Count 250 X10*3/uL (160-400); Red Cell Distribution Width 14.6 % (11.0-16.0); White Blood Count 8.7 X10*3/uL (4.8-10.8)
== END 2022-08-03 12:10 | disposition home or self-care (01) ==
LOC: HO.LAB 12:09
PROVIDERS: Visit Provider Clinical Nurse Specialist Psychiatric/Mental Health, Adult
DX: Z79.899 Other long term (current) drug therapy (principal)
CPT/HCPCS: 36415; 85025

== ENCOUNTER 2022-09-07 09:59 | Outpatient (REF) | payer OTHER, SELFPAY ==
[2022-09-07 10:15] LABS: MANUAL DIFF FLAG NO
[2022-09-07 11:28] LABS: Basophils Percent Auto 0.5 % (0-2); Eosinophils Absolute Auto 0.1 X10*3/uL (0.0-0.4); Eosinophils Percent Auto 0.6 % (0-4); Hemoglobin 15.5 g/dl (12.0-16.0); Imm Gran Abs Auto 0.03 X10*3/uL (0.00-0.03); Imm Gran Pct Auto 0.3 % (0.0-0.4); Lymphocytes Absolute Auto 3.2 X10*3/uL (1.2-4.9); Lymphocytes Percent Auto 36.1 % (20-40); Mean Corpuscular Hemoglobin 31.2 pg (27.0-33.0); Mean Corpuscular Volume 94.6 fL (80.0-98.0); Mean Platelet Volume 10.7 fL (9.4-12.3); Monocytes Absolute Auto 0.6 X10*3/uL (0.1-1.2); Neutrophils Absolute Auto 4.9 x10*3/uL (2.0-8.3); Neutrophils Percent Auto 55.5 % (45-73); Platelet Count 257 X10*3/uL (160-400); Red Blood Count 4.97 X10*6/uL (4.20-5.50); Red Cell Distribution Width 13.8 % (11.0-16.0); White Blood Count 8.7 X10*3/uL (4.8-10.8)
== END 2022-09-07 10:00 | disposition home or self-care (01) ==
LOC: HO.LABR 09:59
PROVIDERS: Visit Provider Clinical Nurse Specialist Psychiatric/Mental Health, Adult
DX: Z79.899 Other long term (current) drug therapy (principal)
CPT/HCPCS: 36415; 85025

== ENCOUNTER 2022-10-26 09:57 | Outpatient (REF) | payer OTHER, SELFPAY ==
[2022-10-26 10:11] LABS: MANUAL DIFF FLAG NO
[2022-10-26 10:27] LABS: Basophils Absolute Auto 0.1 X10*3/uL (0.0-0.2); Basophils Percent Auto 0.8 % (0-2); Eosinophils Absolute Auto 0.1 X10*3/uL (0.0-0.4); Eosinophils Percent Auto 0.6 % (0-4); Hematocrit 45.9 % (37.0-47.0); Hemoglobin 15.2 g/dl (12.0-16.0); Imm Gran Abs Auto 0.08 X10*3/uL (0.00-0.03); Imm Gran Pct Auto 0.9 % (0.0-0.4); Lymphocytes Absolute Auto 2.8 X10*3/uL (1.2-4.9); Lymphocytes Percent Auto 32.7 % (20-40); Mean Corpuscular HGB Conc 33.1 g/dl (31.0-35.0); Mean Corpuscular Hemoglobin 31.1 pg (27.0-33.0); Mean Corpuscular Volume 93.9 fL (80.0-98.0); Mean Platelet Volume 10.6 fL (9.4-12.3); Monocytes Absolute Auto 0.7 X10*3/uL (0.1-1.2); Monocytes Percent Auto 8.1 % (2-11); Neutrophils Absolute Auto 4.8 x10*3/uL (2.0-8.3); Neutrophils Percent Auto 56.9 % (45-73); Platelet Count 239 X10*3/uL (160-400); Red Blood Count 4.89 X10*6/uL (4.20-5.50); Red Cell Distribution Width 14.1 % (11.0-16.0); White Blood Count 8.5 X10*3/uL (4.8-10.8)
== END 2022-10-26 09:58 | disposition home or self-care (01) ==
LOC: HO.LABR 09:57
PROVIDERS: PCP Internal Medicine; Visit Provider Clinical Nurse Specialist Psychiatric/Mental Health, Adult
DX: Z79.899 Other long term (current) drug therapy (principal)
CPT/HCPCS: 36415; 85025

== ENCOUNTER 2022-11-08 14:15 | Outpatient (AMB) | payer OTHER, SELFPAY ==
--- NOTE | 2022-11-08 14:22 | A.OFFVIS_ITS ---
Intake VS Expanded 11/08/22 14:23 Height 5 ft 3 in Weight 170 lb 3.15 oz BMI 30.1 Intake Visit Reasons: DM Allergies influenza virus vaccine, specific [Influenza Virus Vacc,Specific] Allergy (Intermediate, Verified 06/01/22 14:12) UNKNOWN fluvoxamine [From Luvox] Allergy (Unknown, Verified 06/01/22 14:12) Rash latex Allergy (Unknown, Verified 06/01/22 14:12) Rash seafood Allergy (Unknown, Verified 06/01/22 14:12) Rash HPI Nutrition Presentation Details Pt presents for MNT for T2DM Pt presents with staff from [facility]. Pt reports doing well. Reports eating 3 meals a day. Has breakfast: toast with peanut butter or cereal with 1% milk , may not finish the milk participates in lunch at the [employer] 3 times a week. Dinner or lunch: sandwich or burger or rice/beans or frozen healthy choice meals. Tends to have episodes of increased snacks in the evening. smokes 1ppd - same for over a year physical activity : daily life activities, currently not interested in participating in exercise progr Pt reports bg are good , in 90-140s before or after meals Most Recent Diabetes Results: Microalb/Creat Ratio TNP 04/13/22 Cholesterol 138 mg/dL 03/23/22 HDL Cholesterol 41 mg/dL 03/23/22 Triglycerides 116 mg/dL 03/23/22 Creatinine 0.67 mg/dL (0.5-1.4) 05/25/22 Blood Urea Nitrogen 12 mg/dL (9-16) 05/25/22 Sodium 141 mmol/L (135-145) 05/25/22 Potassium 5.0 mmol/L (3.3-5.1) 05/25/22 Chloride 107 mmol/L (96-108) 05/25/22 Carbon Dioxide 25 mmol/L (22-29) 05/25/22 Calcium 8.8 mg/dL (8.4-10.2) 05/25/22 AST 16 U/L (5-31) 05/25/22 ALT 11 U/L (0-31) 05/25/22 Total Protein 6.2 g/dL (6.5-8.0) L 05/25/22 Albumin 3.6 g/dL (3.5-5.0) 05/25/22 [facility] Medical History ADD (attention deficit disorder) Colonoscopy refused Diabetes mellitus type 2 with retinopathy Essential hypertension GERD (gastroesophageal reflux disease) Heavy cigarette smoker (20-39 per day) Hyperlipidemia LDL goal <100 Mammogram declined Obesity due to excess calories Papanicolaou smear declined Schizophrenia Smoker unmotivated to quit Type 2 diabetes mellitus with hyperglycemia, with long-term current use of insulin Family History Mother Mental health disorder Other Unknown family medical history Social History Household Members: None Housing: Other Housing Other:: [facility] independent living Patient Tobacco Use Status: Current everyday Tobacco user Cigarette Packs Per Day: 1.25 Cigarettes Per Day: 25 e-Cigarette/Vaping Use: Never Used Second Hand Smoke Exposure: No Current occupational status: disabled Cognitive needs: No Hearing needs: No Vision needs: No Assessment & Plan Assessment & Plan (1) Type 2 diabetes mellitus with hyperglycemia, with long-term current use of insulin: Code(s): E11.65 - Type 2 diabetes mellitus with hyperglycemia; Z79.4 - terminal 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 BMI hx : 30.1 on 11/08/22 , 29.5 10/11/21 , 33.5 on 08/21/20 , BMI at 33.1 (11/02/20) BMI 33.8 on (01/04/21), BMI at 32.5 (04/12/21), BMI 31.3 (07/12/21), BMI 29.5 on 10/11/21, BMI at 26.8 on 05/02/21 EST [facility] [id number] USED ADJUSTED BODY WT : 66 kg est protein needs as per 0.8-1.0 g/kg bw: 53 -66 g/d est fluid needs as per 25 ml/kg bw: 1650 ml/d Patient Instructions: Have [address] of pastries or yogurt/sugar free pudding (fruit cups, applesauce, yogurt, sugar free puddings ) Follow healthy plate method at dinner time Drink water or low sugar beverages (dilute juices with water) Coding Level of Care Code Nutr Indiv Subseq (14669) Diagnoses Type 2 diabetes mellitus with hyperglycemia, with long-term current use of insulin E11.65; Z79.4 Time Spent (min) 25
[2022-11-08 14:23] VITALS: BMI 30.1
== END 2022-11-08 14:37 | disposition home or self-care (01) ==
PROVIDERS: PCP Internal Medicine; Referring Provider Internal Medicine; Visit Provider Dietitian, Registered
DX: E11.65 Type 2 diabetes mellitus with hyperglycemia (principal); Z79.4 Long term (current) use of insulin

== ENCOUNTER → 2022-11-08 14:15 | Outpatient (BNVA) | payer OTHER, SELFPAY | PROVIDERS: Visit Provider Dietitian, Registered | DX: E11.65 Type 2 diabetes mellitus with hyperglycemia (principal); Z79.4 Long term (current) use of insulin | CPT/HCPCS: 97803 ==

== ENCOUNTER 2022-11-23 13:49 | Outpatient (REF) | payer OTHER, SELFPAY ==
[2022-11-23 14:03] LABS: MANUAL DIFF FLAG NO
[2022-11-23 14:32] LABS: Basophils Percent Auto 0.4 % (0-2); Eosinophils Percent Auto 0.4 % (0-4); Hematocrit 44.3 % (37.0-47.0); Hemoglobin 14.9 g/dl (12.0-16.0); Imm Gran Abs Auto 0.07 X10*3/uL (0.00-0.03); Imm Gran Pct Auto 0.7 % (0.0-0.4); Lymphocytes Absolute Auto 3.2 X10*3/uL (1.2-4.9); Lymphocytes Percent Auto 30.7 % (20-40); Mean Corpuscular HGB Conc 33.6 g/dl (31.0-35.0); Mean Corpuscular Hemoglobin 30.8 pg (27.0-33.0); Mean Corpuscular Volume 91.7 fL (80.0-98.0); Mean Platelet Volume 10.3 fL (9.4-12.3); Monocytes Absolute Auto 0.8 X10*3/uL (0.1-1.2); Monocytes Percent Auto 7.6 % (2-11); Neutrophils Absolute Auto 6.2 x10*3/uL (2.0-8.3); Neutrophils Percent Auto 60.2 % (45-73); Platelet Count 241 X10*3/uL (160-400); Red Blood Count 4.83 X10*6/uL (4.20-5.50); Red Cell Distribution Width 13.5 % (11.0-16.0); White Blood Count 10.3 X10*3/uL (4.8-10.8)
== END 2022-11-23 13:50 | disposition home or self-care (01) ==
LOC: HO.LABR 13:49
PROVIDERS: Visit Provider Clinical Nurse Specialist Psychiatric/Mental Health, Adult
DX: Z79.899 Other long term (current) drug therapy (principal)
CPT/HCPCS: 36415; 85025

== ENCOUNTER 2022-12-28 09:45 | Outpatient (REF) | payer OTHER, SELFPAY ==
[2022-12-28 10:04] LABS: MANUAL DIFF FLAG NO
[2022-12-28 10:14] LABS: Basophils Absolute Auto 0.1 X10*3/uL (0.0-0.2); Basophils Percent Auto 0.5 % (0-2); Eosinophils Absolute Auto 0.3 X10*3/uL (0.0-0.4); Eosinophils Percent Auto 3.2 % (0-4); Hematocrit 45.9 % (37.0-47.0); Hemoglobin 15.5 g/dl (12.0-16.0); Imm Gran Abs Auto 0.08 X10*3/uL (0.00-0.03); Imm Gran Pct Auto 0.9 % (0.0-0.4); Lymphocytes Absolute Auto 2.6 X10*3/uL (1.2-4.9); Lymphocytes Percent Auto 28.3 % (20-40); Mean Corpuscular HGB Conc 33.8 g/dl (31.0-35.0); Mean Corpuscular Hemoglobin 31.1 pg (27.0-33.0); Mean Corpuscular Volume 92.2 fL (80.0-98.0); Mean Platelet Volume 10.2 fL (9.4-12.3); Monocytes Absolute Auto 0.7 X10*3/uL (0.1-1.2); Monocytes Percent Auto 8.1 % (2-11); Neutrophils Absolute Auto 5.4 x10*3/uL (2.0-8.3); Platelet Count 291 X10*3/uL (160-400); Red Blood Count 4.98 X10*6/uL (4.20-5.50); White Blood Count 9.2 X10*3/uL (4.8-10.8)
== END 2022-12-28 09:46 | disposition home or self-care (01) ==
LOC: HO.LABR 09:45
PROVIDERS: PCP Internal Medicine; Visit Provider Clinical Nurse Specialist Psychiatric/Mental Health, Adult
DX: Z79.899 Other long term (current) drug therapy (principal)
CPT/HCPCS: 36415; 85025

== ENCOUNTER 2023-01-30 09:45 | Outpatient (REF) | payer OTHER, SELFPAY ==
[2023-01-30 10:11] LABS: MANUAL DIFF FLAG NO
[2023-01-30 10:42] LABS: Basophils Absolute Auto 0.1 X10*3/uL (0.0-0.2); Basophils Percent Auto 0.5 % (0-2); Eosinophils Absolute Auto 0.1 X10*3/uL (0.0-0.4); Eosinophils Percent Auto 0.4 % (0-4); Hematocrit 48.7 % (37.0-47.0); Hemoglobin 16.1 g/dl (12.0-16.0); Imm Gran Abs Auto 0.13 X10*3/uL (0.00-0.03); Imm Gran Pct Auto 0.9 % (0.0-0.4); Lymphocytes Absolute Auto 1.6 X10*3/uL (1.2-4.9); Lymphocytes Percent Auto 10.9 % (20-40); Mean Corpuscular HGB Conc 33.1 g/dl (31.0-35.0); Mean Corpuscular Volume 93.8 fL (80.0-98.0); Mean Platelet Volume 10.9 fL (9.4-12.3); Monocytes Absolute Auto 1.4 X10*3/uL (0.1-1.2); Monocytes Percent Auto 9.7 % (2-11); Neutrophils Absolute Auto 11.3 x10*3/uL (2.0-8.3); Neutrophils Percent Auto 77.6 % (45-73); Platelet Count 246 X10*3/uL (160-400); Red Blood Count 5.19 X10*6/uL (4.20-5.50); Red Cell Distribution Width 13.8 % (11.0-16.0); White Blood Count 14.5 X10*3/uL (4.8-10.8)
== END 2023-01-30 09:46 | disposition home or self-care (01) ==
LOC: HO.LAB 09:45
PROVIDERS: Absent Provider Internal Medicine; PCP Internal Medicine; Visit Provider Clinical Nurse Specialist Psychiatric/Mental Health, Adult
DX: Z79.899 Other long term (current) drug therapy (principal)
CPT/HCPCS: 36415; 85025

== ENCOUNTER 2023-02-01 09:38 | Outpatient (REF) | payer OTHER, SELFPAY ==
[2023-02-01 10:12] LABS: Estimated Average Glucose 194 mg/dL; Hemoglobin A1c % 8.4 % (<6.0)
[2023-02-01 10:42] LABS: Alanine Aminotransferase 18 U/L (0-31); Anion Gap 15 (12-20); Aspartate Amino Transferase 23 U/L (5-31); Blood Urea Nitrogen 19 mg/dL (9-16); Calcium 9.6 mg/dL (8.4-10.2); Carbon Dioxide 25 mmol/L (22-29); Chloride 100 mmol/L (96-108); Cholesterol 149 mg/dL (<200); Estimated Glomerular Filt Rate 58; Glucose Fasting 295 mg/dL (60-99); HDL Cholesterol 35 mg/dL (>40); LDL Cholesterol Calculated 73 mg/dL (<100); Potassium 4.4 mmol/L (3.3-5.1); Sodium 136 mmol/L (135-145); Triglycerides 208 mg/dL (<150)
[2023-02-01 11:02] LABS: Vitamin D 25-OH Total 51.1 ng/mL (>30)
== END 2023-02-01 09:39 | disposition home or self-care (01) ==
LOC: HO.LAB 09:38
PROVIDERS: PCP Internal Medicine; Visit Provider Internal Medicine
DX: I10 Essential (primary) hypertension (principal); E11.65 Type 2 diabetes mellitus with hyperglycemia; Z79.4 Long term (current) use of insulin
CPT/HCPCS: 36415; 80048; 80061; 82306; 83036; 84450; 84460

== ENCOUNTER 2023-02-02 11:51 | Outpatient (AMB) | payer OTHER, SELFPAY ==
--- NOTE | 2023-02-02 12:11 | MHC.PC.OV ---
Vital Signs 02/02/23 12:12 Height 5 ft 3 in Weight 161 lb 2 oz BMI 28.5 BP 100/62 Blood Pressure Location Rt brachial Position Sitting Pulse 91 Pulse Source Pulse Oximeter Pulse Oximetry (%) 96 Oxygen Delivery Method Room Air Intake Visit Reasons: FUP -DM+MEDS+LABS+ NEEDS PHQ9+ THRIVE Intake Note: pt is here to follow up on lab results Allergies influenza virus vaccine, specific [Influenza Virus Vacc,Specific] Allergy (Intermediate, Verified 02/02/23 12:45) UNKNOWN fluvoxamine [From Luvox] Allergy (Unknown, Verified 02/02/23 12:45) Rash latex Allergy (Unknown, Verified 02/02/23 12:45) Rash seafood Allergy (Unknown, Verified 02/02/23 12:45) Rash Medication List - Last Reconciled 02/02/23 by Sandi Molina MD alcohol swabs (Alcohol Prep Pads) 1 pad topical QID aspirin 81 mg PO DAILY atorvastatin (Lipitor) 20 mg PO DAILY blood sugar diagnostic (FreeStyle Lite Strips) As directed twice a day clozapine 200 mg PO BEDTIME divalproex ER (Depakote ER) 1,000 mg PO DAILY dulaglutide (Trulicity) 3 mg (0.5 mL) subcut QWEEK empagliflozin (Jardiance) 25 mg PO QAM haloperidol 2.5 mg PO daily; insulin glargine (Lantus Solostar U-100 Insulin) 36 units (0.36 mL) subcut QPM lancets (Pure Comfort Safety Lancets) 1 gauge miscellaneous BID lisinopril 5 mg PO DAILY metformin ER 1,000 mg (2 x 500 mg) PO DAILY methylphenidate HCl (Ritalin) 5 mg PO DAILY metoprolol succinate ER 100 mg PO QAM multivitamin with folic acid 400 mcg (Tab-A-Yesica) 1 tab PO DAILY omeprazole 20 mg PO DAILY pen needle, diabetic (Comfort EZ Pen [place]) As directed to inject insulin daily pen needle, diabetic (Comfort EZ Pen [place]) One daily ([id number]) pioglitazone 15 mg PO DAILY Tobacco use date assessed: 02/02/23 Dental Screening Dental Screen Date: 02/02/23 Did you have a dental visit in the last 12 months?: No Did you have a dental problem in the last 6 months where you did not have access to dental care?: No HPI FUP -DM+MEDS+LABS+ NEEDS PHQ9+ THRIVE HPI Details 52 year old lady with hypertension, dyslipidemia, chronic GERD , and diabetes mellitus; with history of ADD and schizophrenia currently followed by psych, here today for a follow-up. She had recent fasting labs done which showed her hemoglobin A1c to be at 8.4%, and fasting lipids showing elevated triglycerides and low HDL cholesterol with normal LDL cholesterol below 100 mg/dL. Blood pressure is stable controlled with present treatment. Patient without any specific complaints at present time. However she does not have any exercise at all, and has not really been fully compliant with following recommended diet. Continues to smoke cigarettes with no desire to quit at present time [facility] Medical History Mammogram declined Papanicolaou smear declined Colonoscopy refused Type 2 diabetes mellitus with hyperglycemia, with long-term current use of insulin Heavy cigarette smoker (20-39 per day) Smoker unmotivated to quit Obesity due to excess calories Schizophrenia ADD (attention deficit disorder) GERD (gastroesophageal reflux disease) Diabetes mellitus type 2 with retinopathy Hyperlipidemia LDL goal <100 Essential hypertension Family History Mother Mental health disorder Other Unknown family medical history Social History Household Members: None Housing: Other Housing Other:: [facility] independent living Patient Tobacco Use Status: Current everyday Tobacco user Cigarette Packs Per Day: 1.25 Cigarettes Per Day: 25 e-Cigarette/Vaping Use: Never Used Second Hand Smoke Exposure: No Current occupational status: disabled Cognitive needs: No Hearing needs: No Vision needs: No Questionnaire PHQ-9 Over the last 2 weeks, how often have you been bothered by any of the following problems? 1. Little interest or pleasure in doing things: several days 2. Feeling down, depressed, or hopeless: not at all 3. Trouble falling or staying asleep, or sleeping too much: not at all 4. Feeling tired or having little energy: several days 5. Poor appetite or overeating: several days 6. Feeling bad about yourself - or that you are a failure or have let yourself or your family down: not at all 7. Trouble concentrating on things, such as reading the newspaper or watching television: not at all 8. Moving or speaking so slowly that other people could have noticed. Or the opposite - being so fidgety or restless that you have been moving around a lot more than usual: several days 9. Thoughts that you would be better off or of hurting yourself in some way: not at all Total score: 4 Depression Screening Interpretation: Positive Depression Screening Follow-up: Existing condition and In treatment (Followed by psychiatry) Depression Screening Done: Yes 55158 - PHQ-9 Billing: Yes Source: Developed by Drs. Chong Jeffries, Mary Suh, Baldev Dennis and colleagues, with an educational scar from [employer]. Thrive Questionnaire Date Thrive assessed: 02/02/23 I am a: Patient What is your living situation today?: I have a steady place to live Within the past 12 months, did the food you bought not last and you didn't have the money to get more?: Never true Within the past 12 months, did you worry whether your food would run out before you got money to buy more?: Never true Do you have trouble paying for medicines?: No Do you have trouble getting transportation to medical appointments?: No Do you have trouble paying your heating and electricity bill?: No Do you have trouble taking care of your child, family member or friend?: No Do you have trouble with day-to-day activities such as bathing, preparing meals, shopping, managing finances, etc.?: No Are you currently unemployed and looking for a job?: No Are you interested in more education?: No SAMMI-7 AMB Questionnaire SAMMI-7 Date SAMMI - 7 assessed: 02/02/23 Feeling nervous, anxious, or on edge: 1 = Several days Not being able to stop or control worryin = Not at all Worrying too much about different things: 0 = Not at all Trouble relaxin = Several days Being so restless that it is hard to sit still: 1 = Several days Becoming easily annoyed or irritable: 0 = Not at all Feeling afraid as if something awful might happen: 0 = Not at all Total SAMMI-7 score (0-4 normal; 5-9 mild; 10-14 moderate; 15-21 severe): 3 Source: Developed by Drs. Chong Jeffries, Mary Suh, Baldev Dennis and colleagues, with an educational sacr from [employer]. Review of Systems Const Denies difficulty sleeping, Denies fatigue, Denies fever(s), Denies headache(s), Denies malaise and Denies poor appetite Eyes Denies change in vision ENT Reports Normal hearing present, Denies dizziness, Denies headache(s), Denies nasal congestion, Denies disequilibrium, Denies post nasal drip and Denies sore throat Card Denies chest pain, Denies pedal edema, Denies leg edema, Denies lightheadedness, Denies palpitations and Denies dyspnea Resp Denies cough and Denies dyspnea GI Denies abdominal pain, Denies melena, Denies hematochezia and Denies change in bowel habits Denies abnormal vaginal bleeding, Denies hematuria, Denies urinary frequency, Denies genital pruritis, Denies genital lesions, Denies nipple discharge, Denies dysuria, Denies urinary incontinence and Denies vaginal discharge Musc Denies muscle cramps, Denies muscle weakness, Denies numbness and Denies tingling Skin/Breast Denies breast pain, Denies breast mass, Denies lesions, Denies nipple discharge and Denies rash Neuro Reports Normal hearing present, Denies burning sensations, Denies dizziness, Denies headache(s), Denies numbness, Denies Sensory deficit (Neuro), Denies tingling, Denies paresthesias and Denies disequilibrium Psych Details: Followed by Dr. Robert Reports as per HPI and Denies depression Endo Denies fatigue, Denies polydipsia, Denies polyuria and Denies palpitations Hitesh/Lymph Denies easy bruising Aller/Immun Reports no additional complaints Physical exam (Primary Care) Vital Signs: Last Vital Signs Pulse 91 02/02/23 12:12 BP 100/62 02/02/23 12:12 Pulse Ox 96 02/02/23 12:12 Oxygen Delivery Method Room Air 02/02/23 12:12 BMI result Body Mass Index 28.5 BMI Assessment/Plan discussion: High BMI High, discussed plan: lifestyle, weight reduction, dietary and physical activity Tobacco/Smoking Status: Tobacco use Status Tobacco use date assessed 10/27/23 10/27/23 12:21 Patient Tobacco Use Status Current everyday Tobacco 02/02/23 12:21 e-Cigarette/Vaping Use Never Used 02/02/23 12:21 Are you ready to quit: No Tobacco cessation counseling provided: Yes PHQ-9: PHQ-9 Score PHQ-9: Total score 4 03/07/23 01:26 Depression Screening Interpretation: Positive Depression Screening Follow-up: Existing condition and In treatment (Followed by psychiatry) Thrive Assessment: Date of Thrive Assessment Date Thrive assessed 02/02/23 02/02/23 12:25 Const Other: Accompanied today by her shaker screen 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 General: cooperative, healthy appearing, no acute distress and alert Nutritional Appearance: obese Orientation/consciousness: patient oriented x3 HENMT Head: Yes normocephalic and Yes atraumatic Ears: external ears normal General nose exam: Normal external nose present and No nasal discharge present Face and sinus: Yes face symmetric Mouth: oropharynx normal and moist mucous membranes Throat: Yes posterior oropharynx normal Eyes Conjunctivae: conjunctivae normal Sclerae: sclerae normal Pupils: Equal, round and reactive pupils present EOM: EOMs intact bilaterally Neck Neck: Yes full ROM and Yes no lymphadenopathy Thyroid: Thyroid normal Carotids: normal carotid upstroke Lymphatic: no lymphadenopathy noted Resp Effort & Inspection: normal respiratory effort and able to speak in complete sentences Auscultation: clear to auscultation bilaterally Cardio Rate: regular rate Rhythm: regular rhythm Heart sounds: S1 normal heart sound present and S2 normal heart sound present GI Inspection: Yes normal to inspection Palpation (GI): Soft to palpation Auscultation: normal bowel sounds General: Yes no CVA tenderness Back/Spine/Pelvis Back: no CVA tenderness Skin General skin exam: no rashes or lesions noted Neuro General: patient oriented x3, gait normal, moves all extremities, no focal motor deficits and CN's II-XI intact bilaterally Cranial nerves: Yes Equal, round and reactive pupils present and Yes Normal hearing present Cognition (Neuro): normal cognition Gait exam (Neuro): Normal gait present Motor exam (neuro): 5/5 motor strength present throughout Sensory Exam: No Sensory deficit (Neuro) Extrem General: Yes normal to inspection, Yes full ROM, Yes no pedal edema and Yes normal gait Results Reviewed Results Reviewed: SPEC : [id number] VANGIE: 02/01/23 STATUS: COMP REQ : [id number] RECD: 02/01/[address]: Sandi Molina MD COMP: 02/01/23 ENTERED: 02/01/[address] [facility] [address]: ORDERED: Met Prof Fast, AST, ALT, Lipid Panel, Vitamin D 25-OH Test Result Flag Reference Site Sodium 136 135-145 mmol/L Potassium 4.4 3.3-5.1 mmol/L CL 100 96-108 mmol/L CO2 25 22-29 mmol/L Gap 15 12-20 BUN 19 H 9-16 mg/dL Creat 1.01 0.5-1.4 mg/dL EGFR 58 NOTE: For -French individuals, multiply the result by 1.210. Chronic Kidney Disease: Estimated GFR < 60 mL/min/1.73m2 Severe Kidney Disease: Estimated GFR < 15 mL/min/1.73m2 FBS 295 H 60-99 mg/dL A fasting glucose of 126 mg/dl or greater on more than one occasion is considered diagnostic of diabetes. CA 9.6 # 8.4-10.2 mg/dL AST (GOT) 23 5-31 U/L ALT (GPT) 18 0-31 U/L Triglyceride 208 H <150 mg/dL Desirable Triglyceride: less than 150 mg/dL Borderline High Triglyceride 150-199 mg/dL High Triglyceride: 200-499 mg/dL Very High Triglyceride: greater than or equal to 5OO mg/dL Cholesterol 149 <200 mg/dL Desirable Cholesterol: less than 200 mg/dL Borderline High Cholesterol: 200-239 mg/dL High Cholesterol: greater than 239 mg/dL LDL Calculated 73 <100 mg/dL Desirable LDL: less than 100 mg/dL Near Optimal/Above Optimal LDL: 110-129 mg/dL Borderline High LDL: 130-159 mg/dL High LDL: 160-189 mg/dL Very High LDL: greater than or equal to 190 mg/dL HDL 35 L >40 mg/dL Desirable HDL: greater than 40 mg/dL Note: This HDL assay may give artificially low results in patients with liver disease. Vit D 25-OH Tot 51.1 >30 ng/mL Health Based Reference Values* < 20 ng/mL Deficient 20-30 ng/mL Insufficient > 30 ng/mL Sufficient Laboratory Tests 02/01/23 09:47 Estimat Average Glucose 194 Hemoglobin A1c % 8.4 H Assessment and Plan Assessment & Plan (1) Type 2 diabetes mellitus with hyperglycemia, with long-term current use of insulin: Code(s): E11.65 - Type 2 diabetes mellitus with hyperglycemia; Z79.4 - nursing home (current) use of insulin Plan: Recent lab results reviewed with patient, with sugar and hemoglobin A1c not at goal . Continue with metformin but increase dose to a 1000 mg in the morning and 500 mg at night with meals, continue Lantus, Jardiance, Trulicity, and pioglitazone at the same dose. continue to check fasting blood sugar at home, maintain log and bring to next appointment for review. Reinforced diabetic diet and regular exercise with patient. Continue atorvastatin 20 mg daily. Counseled regarding importance of yearly diabetes retinopathy screening. Patient advised to inspect feet daily, for any signs of injury, callus or infection. Compliance with diet and regular exercise again stressed. Blood pressure goal is less than 130/80, goal LDL is less than 100 and goal hemoglobin A1c is less than 7% follow-up appointment made in-3--months, after fasting labs done. (2) Essential hypertension: Code(s): I10 - Essential (primary) hypertension Plan: Blood pressure at goal of less than 130/80. Continue taking metoprolol succinate ER 100 mg 1 tablet in the morning and lisinopril 5 mg once a day. Reinforced importance of following a low sodium diet, getting regular exercise, and lowering stress levels. Medications: Changed From metformin ER 1,000 mg (2 x 500 mg) PO DAILY 180 tabs 1RF E11.65 - Type 2 diabetes mellitus with hyperglycemia, Z79.4 - meterman (current) use of insulin To metformin ER take 2 tablets or 1000 mg in the morning with breakfast and 500 mg or 1 tablet at night with supper 270 tabs 1RF 3 months E11.65 - Type 2 diabetes mellitus with hyperglycemia, Z79.4 - meterman (current) use of insulin Coding Level of Care Code Est Pt Level 4 (77383) Diagnoses Type 2 diabetes mellitus with hyperglycemia, with long-term current use of insulin E11.65; Z79.4 Essential hypertension I10
[2023-02-02 12:12] VITALS: BP 100/62; PULSE 91; O2SAT 96; BMI 28.5
== END 2023-02-02 13:02 | disposition home or self-care (01) ==
PROVIDERS: PCP Internal Medicine; Visit Provider Internal Medicine
DX: E11.65 Type 2 diabetes mellitus with hyperglycemia (principal); Z79.4 Long term (current) use of insulin; I10 Essential (primary) hypertension; F17.210 Nicotine dependence, cigarettes, uncomplicated
CPT/HCPCS: 99214

== ENCOUNTER 2023-03-02 11:08 | Outpatient (REF) | payer OTHER, SELFPAY ==
[2023-03-02 11:18] LABS: MANUAL DIFF FLAG NO
[2023-03-02 11:37] LABS: Basophils Percent Auto 0.4 % (0-2); Eosinophils Absolute Auto 0.1 X10*3/uL (0.0-0.4); Eosinophils Percent Auto 1.1 % (0-4); Hematocrit 46.9 % (37.0-47.0); Hemoglobin 15.3 g/dl (12.0-16.0); Imm Gran Abs Auto 0.06 X10*3/uL (0.00-0.03); Imm Gran Pct Auto 0.6 % (0.0-0.4); Lymphocytes Absolute Auto 3.2 X10*3/uL (1.2-4.9); Mean Corpuscular HGB Conc 32.6 g/dl (31.0-35.0); Mean Corpuscular Hemoglobin 30.8 pg (27.0-33.0); Mean Corpuscular Volume 94.4 fL (80.0-98.0); Mean Platelet Volume 10.1 fL (9.4-12.3); Monocytes Absolute Auto 0.7 X10*3/uL (0.1-1.2); Monocytes Percent Auto 7.2 % (2-11); Neutrophils Absolute Auto 5.3 x10*3/uL (2.0-8.3); Neutrophils Percent Auto 56.7 % (45-73); Platelet Count 244 X10*3/uL (160-400); Red Blood Count 4.97 X10*6/uL (4.20-5.50); White Blood Count 9.3 X10*3/uL (4.8-10.8)
== END 2023-03-02 11:09 | disposition home or self-care (01) ==
LOC: HO.LAB 11:08
PROVIDERS: PCP Internal Medicine; Visit Provider Clinical Nurse Specialist Psychiatric/Mental Health, Adult
DX: Z79.899 Other long term (current) drug therapy (principal)
CPT/HCPCS: 36415; 85025

== ENCOUNTER 2023-03-29 13:27 | Outpatient (REF) | payer OTHER, SELFPAY ==
[2023-03-29 13:47] LABS: MANUAL DIFF FLAG NO
[2023-03-29 15:05] LABS: Basophils Absolute Auto 0.1 X10*3/uL (0.0-0.2); Basophils Percent Auto 0.7 % (0-2); Eosinophils Absolute Auto 0.1 X10*3/uL (0.0-0.4); Eosinophils Percent Auto 0.6 % (0-4); Hematocrit 49.5 % (37.0-47.0); Hemoglobin 16.2 g/dl (12.0-16.0); Imm Gran Abs Auto 0.09 X10*3/uL (0.00-0.03); Imm Gran Pct Auto 1.1 % (0.0-0.4); Lymphocytes Absolute Auto 2.6 X10*3/uL (1.2-4.9); Lymphocytes Percent Auto 32.1 % (20-40); Mean Corpuscular HGB Conc 32.7 g/dl (31.0-35.0); Mean Corpuscular Hemoglobin 31.5 pg (27.0-33.0); Mean Corpuscular Volume 96.1 fL (80.0-98.0); Mean Platelet Volume 10.6 fL (9.4-12.3); Monocytes Absolute Auto 0.6 X10*3/uL (0.1-1.2); Monocytes Percent Auto 7.8 % (2-11); Neutrophils Absolute Auto 4.6 x10*3/uL (2.0-8.3); Neutrophils Percent Auto 57.7 % (45-73); Platelet Count 303 X10*3/uL (160-400); Red Blood Count 5.15 X10*6/uL (4.20-5.50); Red Cell Distribution Width 13.6 % (11.0-16.0)
== END 2023-03-29 13:28 | disposition home or self-care (01) ==
LOC: HO.LAB 13:27
PROVIDERS: Visit Provider Clinical Nurse Specialist Psychiatric/Mental Health, Adult
DX: Z79.899 Other long term (current) drug therapy (principal)
CPT/HCPCS: 36415; 85025

== ENCOUNTER 2023-05-03 11:42 | Outpatient (REF) | payer OTHER, SELFPAY ==
[2023-05-03 12:03] LABS: MANUAL DIFF FLAG NO
[2023-05-03 12:20] LABS: Basophils Absolute Auto 0.1 X10*3/uL (0.0-0.2); Basophils Percent Auto 0.7 % (0-2); Eosinophils Absolute Auto 0.1 X10*3/uL (0.0-0.4); Eosinophils Percent Auto 0.6 % (0-4); Hematocrit 46.1 % (37.0-47.0); Imm Gran Abs Auto 0.07 X10*3/uL (0.00-0.03); Imm Gran Pct Auto 0.7 % (0.0-0.4); Mean Corpuscular HGB Conc 32.5 g/dl (31.0-35.0); Mean Corpuscular Hemoglobin 30.4 pg (27.0-33.0); Mean Corpuscular Volume 93.3 fL (80.0-98.0); Mean Platelet Volume 9.6 fL (9.4-12.3); Monocytes Absolute Auto 0.7 X10*3/uL (0.1-1.2); Neutrophils Absolute Auto 5.8 x10*3/uL (2.0-8.3); Platelet Count 327 X10*3/uL (160-400); Red Blood Count 4.94 X10*6/uL (4.20-5.50); Red Cell Distribution Width 13.2 % (11.0-16.0); White Blood Count 9.6 X10*3/uL (4.8-10.8)
== END 2023-05-03 11:43 | disposition home or self-care (01) ==
LOC: HO.LAB 11:42
PROVIDERS: PCP Internal Medicine; Visit Provider Clinical Nurse Specialist Psychiatric/Mental Health, Adult
DX: Z79.899 Other long term (current) drug therapy (principal)
CPT/HCPCS: 36415; 85025

== ENCOUNTER 2023-05-24 10:35 | Outpatient (REF) | payer OTHER, SELFPAY ==
[2023-05-24 11:15] LABS: MANUAL DIFF FLAG NO
[2023-05-24 12:01] LABS: Basophils Percent Auto 0.5 % (0-2); Eosinophils Absolute Auto 0.1 X10*3/uL (0.0-0.4); Eosinophils Percent Auto 0.6 % (0-4); Hematocrit 47.2 % (37.0-47.0); Hemoglobin 15.9 g/dl (12.0-16.0); Imm Gran Abs Auto 0.04 X10*3/uL (0.00-0.03); Imm Gran Pct Auto 0.5 % (0.0-0.4); Lymphocytes Absolute Auto 2.8 X10*3/uL (1.2-4.9); Lymphocytes Percent Auto 35.1 % (20-40); Mean Corpuscular HGB Conc 33.7 g/dl (31.0-35.0); Mean Corpuscular Hemoglobin 31.1 pg (27.0-33.0); Mean Corpuscular Volume 92.2 fL (80.0-98.0); Mean Platelet Volume 10.8 fL (9.4-12.3); Monocytes Absolute Auto 0.6 X10*3/uL (0.1-1.2); Monocytes Percent Auto 7.5 % (2-11); Neutrophils Absolute Auto 4.4 x10*3/uL (2.0-8.3); Neutrophils Percent Auto 55.8 % (45-73); Platelet Count 218 X10*3/uL (160-400); Red Blood Count 5.12 X10*6/uL (4.20-5.50); Red Cell Distribution Width 13.6 % (11.0-16.0); White Blood Count 7.8 X10*3/uL (4.8-10.8)
[2023-05-24 12:06] LABS: Valproate 53.9 mcg/mL (50.0-100.0)
[2023-05-24 12:25] LABS: Alanine Aminotransferase 15 U/L (0-31); Albumin Level 4.2 g/dL (3.5-5.0); Alkaline Phosphatase 98 U/L (39-117); Anion Gap 12 (12-20); Aspartate Amino Transferase 19 U/L (5-31); Bilirubin Total 0.3 mg/dL (0.0-1.0); Blood Urea Nitrogen 15 mg/dL (9-16); Calcium 9.7 mg/dL (8.4-10.2); Carbon Dioxide 31 mmol/L (22-29); Chloride 101 mmol/L (96-108); Estimated Glomerular Filt Rate > 60; Glucose Random 90 mg/dL (60-115); Potassium 4.3 mmol/L (3.3-5.1); Sodium 140 mmol/L (135-145); Total Protein 7.3 g/dL (6.5-8.0)
== END 2023-05-24 10:36 | disposition home or self-care (01) ==
LOC: HO.LAB 10:35
PROVIDERS: PCP Internal Medicine; Visit Provider Clinical Nurse Specialist Psychiatric/Mental Health, Adult
DX: Z79.899 Other long term (current) drug therapy (principal)
CPT/HCPCS: 36415; 80053; 80164; 85025

== ENCOUNTER 2023-06-21 10:51 | Outpatient (REF) | payer OTHER, SELFPAY ==
[2023-06-21 11:15] LABS: MANUAL DIFF FLAG NO
[2023-06-21 11:57] LABS: Basophils Absolute Auto 0.1 X10*3/uL (0.0-0.2); Basophils Percent Auto 0.6 % (0-2); Eosinophils Absolute Auto 0.1 X10*3/uL (0.0-0.4); Eosinophils Percent Auto 1.2 % (0-4); Hematocrit 46.8 % (37.0-47.0); Hemoglobin 15.6 g/dl (12.0-16.0); Imm Gran Abs Auto 0.06 X10*3/uL (0.00-0.03); Imm Gran Pct Auto 0.6 % (0.0-0.4); Lymphocytes Absolute Auto 3.1 X10*3/uL (1.2-4.9); Lymphocytes Percent Auto 28.5 % (20-40); Mean Corpuscular HGB Conc 33.3 g/dl (31.0-35.0); Mean Corpuscular Hemoglobin 30.5 pg (27.0-33.0); Mean Corpuscular Volume 91.6 fL (80.0-98.0); Mean Platelet Volume 10.1 fL (9.4-12.3); Monocytes Absolute Auto 0.8 X10*3/uL (0.1-1.2); Monocytes Percent Auto 7.1 % (2-11); Neutrophils Absolute Auto 6.6 x10*3/uL (2.0-8.3); Platelet Count 241 X10*3/uL (160-400); Red Blood Count 5.11 X10*6/uL (4.20-5.50); White Blood Count 10.7 X10*3/uL (4.8-10.8)
== END 2023-06-21 10:52 | disposition home or self-care (01) ==
LOC: HO.LABR 10:51
PROVIDERS: Visit Provider Clinical Nurse Specialist Psychiatric/Mental Health, Adult
DX: Z79.899 Other long term (current) drug therapy (principal)
CPT/HCPCS: 36415; 85025

== ENCOUNTER 2023-08-02 09:50 | Outpatient (REF) | payer OTHER, SELFPAY | END 2023-08-02 09:51 | disposition home or self-care (01) | LOC: HO.LAB 09:50 | PROVIDERS: Visit Provider Internal Medicine | DX: Z13.89 Encounter for screening for other disorder (principal) ==

== ENCOUNTER 2023-08-09 10:19 | Outpatient (REF) | payer OTHER, SELFPAY ==
[2023-08-09 10:36] LABS: MANUAL DIFF FLAG NO
[2023-08-09 11:13] LABS: Basophils Absolute Auto 0.1 X10*3/uL (0.0-0.2); Basophils Percent Auto 0.6 % (0-2); Eosinophils Absolute Auto 0.1 X10*3/uL (0.0-0.4); Eosinophils Percent Auto 0.7 % (0-4); Hematocrit 45.9 % (37.0-47.0); Hemoglobin 15.2 g/dl (12.0-16.0); Imm Gran Abs Auto 0.05 X10*3/uL (0.00-0.03); Imm Gran Pct Auto 0.6 % (0.0-0.4); Lymphocytes Absolute Auto 2.9 X10*3/uL (1.2-4.9); Lymphocytes Percent Auto 33.4 % (20-40); Mean Corpuscular HGB Conc 33.1 g/dl (31.0-35.0); Mean Corpuscular Hemoglobin 30.8 pg (27.0-33.0); Mean Corpuscular Volume 93.1 fL (80.0-98.0); Mean Platelet Volume 10.4 fL (9.4-12.3); Monocytes Absolute Auto 0.6 X10*3/uL (0.1-1.2); Monocytes Percent Auto 7.1 % (2-11); Neutrophils Absolute Auto 4.9 x10*3/uL (2.0-8.3); Neutrophils Percent Auto 57.6 % (45-73); Platelet Count 234 X10*3/uL (160-400); Red Blood Count 4.93 X10*6/uL (4.20-5.50); Red Cell Distribution Width 14.2 % (11.0-16.0); White Blood Count 8.6 X10*3/uL (4.8-10.8)
== END 2023-08-09 10:20 | disposition home or self-care (01) ==
LOC: HO.LABR 10:19
PROVIDERS: Visit Provider Clinical Nurse Specialist Psychiatric/Mental Health, Adult
DX: Z79.899 Other long term (current) drug therapy (principal)
CPT/HCPCS: 36415; 85025

== ENCOUNTER 2023-08-24 10:11 | Outpatient (REF) | payer OTHER, SELFPAY ==
[2023-08-24 10:29] LABS: MANUAL DIFF FLAG NO
[2023-08-24 11:00] LABS: Basophils Absolute Auto 0.1 X10*3/uL (0.0-0.2); Basophils Percent Auto 0.7 % (0-2); Eosinophils Absolute Auto 0.1 X10*3/uL (0.0-0.4); Eosinophils Percent Auto 0.9 % (0-4); Hematocrit 44.5 % (37.0-47.0); Imm Gran Abs Auto 0.05 X10*3/uL (0.00-0.03); Imm Gran Pct Auto 0.6 % (0.0-0.4); Lymphocytes Absolute Auto 2.7 X10*3/uL (1.2-4.9); Lymphocytes Percent Auto 31.1 % (20-40); Mean Corpuscular HGB Conc 33.7 g/dl (31.0-35.0); Mean Corpuscular Hemoglobin 31.4 pg (27.0-33.0); Mean Corpuscular Volume 93.1 fL (80.0-98.0); Mean Platelet Volume 10.3 fL (9.4-12.3); Monocytes Absolute Auto 0.7 X10*3/uL (0.1-1.2); Monocytes Percent Auto 7.7 % (2-11); Neutrophils Absolute Auto 5.1 x10*3/uL (2.0-8.3); Platelet Count 237 X10*3/uL (160-400); Red Blood Count 4.78 X10*6/uL (4.20-5.50); Red Cell Distribution Width 14.1 % (11.0-16.0); White Blood Count 8.7 X10*3/uL (4.8-10.8)
== END 2023-08-24 10:12 | disposition home or self-care (01) ==
LOC: HO.LABR 10:11
PROVIDERS: PCP Internal Medicine; Visit Provider Clinical Nurse Specialist Psychiatric/Mental Health, Adult
DX: Z79.899 Other long term (current) drug therapy (principal)
CPT/HCPCS: 36415; 85025

== ENCOUNTER 2023-09-20 10:13 | Outpatient (REF) | payer OTHER, SELFPAY ==
[2023-09-20 10:45] LABS: MANUAL DIFF FLAG NO
[2023-09-20 11:45] LABS: Basophils Absolute Auto 0.1 X10*3/uL (0.0-0.2); Basophils Percent Auto 0.7 % (0-2); Eosinophils Percent Auto 0.5 % (0-4); Hematocrit 45.8 % (37.0-47.0); Hemoglobin 15.3 g/dl (12.0-16.0); Imm Gran Abs Auto 0.07 X10*3/uL (0.00-0.03); Imm Gran Pct Auto 0.8 % (0.0-0.4); Lymphocytes Absolute Auto 2.9 X10*3/uL (1.2-4.9); Lymphocytes Percent Auto 33.3 % (20-40); Mean Corpuscular HGB Conc 33.4 g/dl (31.0-35.0); Mean Corpuscular Hemoglobin 30.9 pg (27.0-33.0); Mean Corpuscular Volume 92.5 fL (80.0-98.0); Mean Platelet Volume 10.8 fL (9.4-12.3); Monocytes Absolute Auto 0.6 X10*3/uL (0.1-1.2); Monocytes Percent Auto 6.8 % (2-11); Neutrophils Percent Auto 57.9 % (45-73); Platelet Count 239 X10*3/uL (160-400); Red Blood Count 4.95 X10*6/uL (4.20-5.50); White Blood Count 8.6 X10*3/uL (4.8-10.8)
== END 2023-09-20 10:14 | disposition home or self-care (01) ==
LOC: HO.LAB 10:13
PROVIDERS: PCP Internal Medicine; Visit Provider Clinical Nurse Specialist Psychiatric/Mental Health, Adult
DX: Z79.899 Other long term (current) drug therapy (principal)
CPT/HCPCS: 36415; 85025

== ENCOUNTER 2023-10-23 13:07 | Outpatient (REF) | payer OTHER, SELFPAY | END 2023-10-23 13:08 | disposition home or self-care (01) | LOC: HO.LABR 13:07 | PROVIDERS: PCP Internal Medicine; Visit Provider Clinical Nurse Specialist Psychiatric/Mental Health, Adult | DX: Z13.89 Encounter for screening for other disorder (principal) ==

== ENCOUNTER 2023-10-25 10:48 | Outpatient (REF) | payer OTHER, SELFPAY ==
[2023-10-25 11:11] LABS: MANUAL DIFF FLAG NO
[2023-10-25 11:34] LABS: Basophils Absolute Auto 0.1 X10*3/uL (0.0-0.2); Basophils Percent Auto 0.5 % (0-2); Eosinophils Percent Auto 0.2 % (0-4); Hematocrit 47.2 % (37.0-47.0); Hemoglobin 15.7 g/dl (12.0-16.0); Imm Gran Pct Auto 0.7 % (0.0-0.4); Lymphocytes Percent Auto 12.9 % (20-40); Mean Corpuscular HGB Conc 33.3 g/dl (31.0-35.0); Mean Corpuscular Hemoglobin 31.6 pg (27.0-33.0); Mean Platelet Volume 11.3 fL (9.4-12.3); Monocytes Absolute Auto 1.3 X10*3/uL (0.1-1.2); Monocytes Percent Auto 8.8 % (2-11); Neutrophils Absolute Auto 11.8 x10*3/uL (2.0-8.3); Neutrophils Percent Auto 76.9 % (45-73); Platelet Count 166 X10*3/uL (160-400); Red Blood Count 4.97 X10*6/uL (4.20-5.50); Red Cell Distribution Width 13.8 % (11.0-16.0); White Blood Count 15.3 X10*3/uL (4.8-10.8)
== END 2023-10-25 10:49 | disposition home or self-care (01) ==
LOC: HO.LABR 10:48
PROVIDERS: PCP Internal Medicine; Visit Provider Clinical Nurse Specialist Psychiatric/Mental Health, Adult
DX: Z79.899 Other long term (current) drug therapy (principal)
CPT/HCPCS: 36415; 85025

== ENCOUNTER 2023-11-22 11:14 | Outpatient (REF) | payer OTHER, SELFPAY ==
[2023-11-22 11:24] LABS: MANUAL DIFF FLAG NO
[2023-11-22 11:46] LABS: Basophils Absolute Auto 0.1 X10*3/uL (0.0-0.2); Basophils Percent Auto 0.6 % (0-2); Eosinophils Percent Auto 0.5 % (0-4); Hematocrit 47.8 % (37.0-47.0); Hemoglobin 16.3 g/dl (12.0-16.0); Imm Gran Abs Auto 0.06 X10*3/uL (0.00-0.03); Imm Gran Pct Auto 0.8 % (0.0-0.4); Lymphocytes Absolute Auto 2.5 X10*3/uL (1.2-4.9); Lymphocytes Percent Auto 31.9 % (20-40); Mean Corpuscular HGB Conc 34.1 g/dl (31.0-35.0); Mean Corpuscular Hemoglobin 31.8 pg (27.0-33.0); Mean Corpuscular Volume 93.2 fL (80.0-98.0); Mean Platelet Volume 10.2 fL (9.4-12.3); Monocytes Absolute Auto 0.6 X10*3/uL (0.1-1.2); Monocytes Percent Auto 7.1 % (2-11); Neutrophils Absolute Auto 4.7 x10*3/uL (2.0-8.3); Neutrophils Percent Auto 59.1 % (45-73); Platelet Count 211 X10*3/uL (160-400); Red Blood Count 5.13 X10*6/uL (4.20-5.50); Red Cell Distribution Width 13.5 % (11.0-16.0); White Blood Count 7.9 X10*3/uL (4.8-10.8)
== END 2023-11-22 11:15 | disposition home or self-care (01) ==
LOC: HO.LAB 11:14
PROVIDERS: PCP Internal Medicine; Visit Provider Psychiatry & Neurology Psychiatry
DX: Z79.899 Other long term (current) drug therapy (principal)
CPT/HCPCS: 36415; 85025

== ENCOUNTER 2023-12-20 11:07 | Outpatient (REF) | payer OTHER, SELFPAY ==
[2023-12-20 11:24] LABS: MANUAL DIFF FLAG NO
[2023-12-20 11:40] LABS: Basophils Absolute Auto 0.1 X10*3/uL (0.0-0.2); Basophils Percent Auto 0.4 % (0-2); Eosinophils Percent Auto 0.1 % (0-4); Hematocrit 47.6 % (37.0-47.0); Hemoglobin 16.2 g/dl (12.0-16.0); Imm Gran Pct Auto 0.7 % (0.0-0.4); Lymphocytes Absolute Auto 2.8 X10*3/uL (1.2-4.9); Lymphocytes Percent Auto 19.8 % (20-40); Mean Corpuscular Hemoglobin 31.3 pg (27.0-33.0); Mean Corpuscular Volume 92.1 fL (80.0-98.0); Mean Platelet Volume 10.3 fL (9.4-12.3); Monocytes Absolute Auto 1.2 X10*3/uL (0.1-1.2); Monocytes Percent Auto 8.3 % (2-11); Neutrophils Percent Auto 70.7 % (45-73); Platelet Count 228 X10*3/uL (160-400); Red Blood Count 5.17 X10*6/uL (4.20-5.50); Red Cell Distribution Width 13.2 % (11.0-16.0); White Blood Count 14.2 X10*3/uL (4.8-10.8)
== END 2023-12-20 11:08 | disposition home or self-care (01) ==
LOC: HO.LAB 11:07
PROVIDERS: Absent Provider Psychiatry & Neurology Psychiatry; PCP Internal Medicine; Visit Provider Internal Medicine
DX: Z79.899 Other long term (current) drug therapy (principal)
CPT/HCPCS: 36415; 85025

== ENCOUNTER 2024-01-08 10:25 | Outpatient (REF) | payer OTHER, SELFPAY ==
[2024-01-08 13:50] LABS: Alanine Aminotransferase 30 U/L (0-31); Albumin Level 4.3 g/dL (3.5-5.0); Alkaline Phosphatase 117 U/L (39-117); Anion Gap 17 (12-20); Aspartate Amino Transferase 28 U/L (5-31); Bilirubin Total 0.3 mg/dL (0.0-1.0); Blood Urea Nitrogen 14 mg/dL (9-16); Calcium 9.8 mg/dL (8.4-10.2); Carbon Dioxide 24 mmol/L (22-29); Chloride 99 mmol/L (96-108); Cholesterol 172 mg/dL (<200); Estimated Glomerular Filt Rate > 60; Glucose Fasting 201 mg/dL (60-99); HDL Cholesterol 44 mg/dL (>40); LDL Cholesterol Calculated 90 mg/dL (<100); Potassium 4.7 mmol/L (3.3-5.1); Sodium 135 mmol/L (135-145); Total Protein 7.5 g/dL (6.5-8.0); Triglycerides 193 mg/dL (<150); Vitamin D 25-OH Total 63.5 ng/mL (>30)
[2024-01-08 13:52] LABS: Estimated Average Glucose 226 mg/dL; Hemoglobin A1C 333.7388 umol/L; Hemoglobin A1c % 9.5 % (<6.0); Total Hemoglobin (HGBA1C) 4132.5896 umol/L
[2024-01-11 02:59] LABS: TS Negative Control Passed; TS Panel A 0; TS Panel B 0; TS Positive Control Passed; TSpotTB Negative (Negative)
== END 2024-01-08 10:26 | disposition home or self-care (01) ==
LOC: HO.HMGCLDS 10:25
PROVIDERS: PCP Internal Medicine; Visit Provider Internal Medicine
DX: E66.09 Other obesity due to excess calories (principal); Z68.33 Body mass index [BMI] 33.0-33.9, adult; I10 Essential (primary) hypertension; E11.65 Type 2 diabetes mellitus with hyperglycemia; Z79.4 Long term (current) use of insulin; Z11.1 Encounter for screening for respiratory tuberculosis
CPT/HCPCS: 36415; 80053; 80061; 82306; 83036; 86481

== ENCOUNTER 2024-02-07 11:49 | Outpatient (REF) | payer OTHER, SELFPAY ==
[2024-02-07 12:05] LABS: MANUAL DIFF FLAG NO
[2024-02-07 12:34] LABS: Basophils Absolute Auto 0.1 X10*3/uL (0.0-0.2); Basophils Percent Auto 0.7 % (0-2); Eosinophils Absolute Auto 0.1 X10*3/uL (0.0-0.4); Eosinophils Percent Auto 0.5 % (0-4); Hemoglobin 15.2 g/dl (12.0-16.0); Imm Gran Abs Auto 0.04 X10*3/uL (0.00-0.03); Imm Gran Pct Auto 0.4 % (0.0-0.4); Lymphocytes Absolute Auto 3.4 X10*3/uL (1.2-4.9); Lymphocytes Percent Auto 36.5 % (20-40); Mean Corpuscular Volume 93.7 fL (80.0-98.0); Mean Platelet Volume 10.4 fL (9.4-12.3); Monocytes Absolute Auto 0.7 X10*3/uL (0.1-1.2); Monocytes Percent Auto 7.2 % (2-11); Neutrophils Absolute Auto 5.1 x10*3/uL (2.0-8.3); Neutrophils Percent Auto 54.7 % (45-73); Platelet Count 243 X10*3/uL (160-400); Red Blood Count 4.91 X10*6/uL (4.20-5.50); Red Cell Distribution Width 13.9 % (11.0-16.0); White Blood Count 9.2 X10*3/uL (4.8-10.8)
== END 2024-02-07 11:50 | disposition home or self-care (01) ==
LOC: HO.LABR 11:49
PROVIDERS: PCP Internal Medicine; Visit Provider Psychiatry & Neurology Psychiatry
DX: Z79.899 Other long term (current) drug therapy (principal)
CPT/HCPCS: 36415; 85025

== ENCOUNTER 2024-03-05 11:38 | Outpatient (REF) | payer OTHER, SELFPAY ==
[2024-03-05 12:00] LABS: MANUAL DIFF FLAG NO
[2024-03-05 12:19] LABS: Basophils Percent Auto 0.3 % (0-2); Eosinophils Percent Auto 0.2 % (0-4); Hematocrit 47.3 % (37.0-47.0); Imm Gran Abs Auto 0.06 X10*3/uL (0.00-0.03); Imm Gran Pct Auto 0.6 % (0.0-0.4); Lymphocytes Absolute Auto 2.6 X10*3/uL (1.2-4.9); Lymphocytes Percent Auto 27.5 % (20-40); Mean Corpuscular HGB Conc 33.8 g/dl (31.0-35.0); Mean Corpuscular Hemoglobin 31.2 pg (27.0-33.0); Mean Corpuscular Volume 92.2 fL (80.0-98.0); Mean Platelet Volume 10.3 fL (9.4-12.3); Monocytes Absolute Auto 0.7 X10*3/uL (0.1-1.2); Monocytes Percent Auto 7.3 % (2-11); Neutrophils Absolute Auto 5.9 x10*3/uL (2.0-8.3); Neutrophils Percent Auto 64.1 % (45-73); Platelet Count 241 X10*3/uL (160-400); Red Blood Count 5.13 X10*6/uL (4.20-5.50); Red Cell Distribution Width 14.1 % (11.0-16.0); White Blood Count 9.3 X10*3/uL (4.8-10.8)
== END 2024-03-05 11:39 | disposition home or self-care (01) ==
LOC: HO.LAB 11:38
PROVIDERS: PCP Internal Medicine; Visit Provider Psychiatry & Neurology Psychiatry
DX: Z79.899 Other long term (current) drug therapy (principal)
CPT/HCPCS: 36415; 85025

== ENCOUNTER 2024-04-24 11:42 | Outpatient (AMB) | payer OTHER, SELFPAY ==
[2024-04-24 12:04] VITALS: BP 112/72; PULSE 98; O2SAT 93; BMI 26.1
--- NOTE | 2024-04-24 12:04 | MHC.PC.OV ---
Vital Signs 04/24/24 12:04 Height 5 ft 3 in Weight 147 lb 4 oz BMI 26.1 BP 112/72 Blood Pressure Location Rt brachial Position Sitting Pulse 98 Pulse Source Pulse Oximeter Pulse Oximetry (%) 93 Oxygen Delivery Method Room Air Intake Visit Reasons: DM, AIC Intake Note: Patient is here today for follow up diabetes. Allergies influenza virus vaccine, specific [Influenza Virus Vacc,Specific] Allergy (Intermediate, Verified 04/24/24 12:24) UNKNOWN fluvoxamine [From Luvox] Allergy (Unknown, Verified 04/24/24 12:24) Rash latex Allergy (Unknown, Verified 04/24/24 12:24) Rash seafood Allergy (Unknown, Verified 04/24/24 12:24) Rash Medication List - Last Reconciled 04/24/24 by Sandi Molina MD alcohol swabs (Alcohol Prep Pads) 1 pad topical QID atorvastatin (Lipitor) 20 mg PO DAILY blood sugar diagnostic (FreeStyle Lite Strips) As directed twice a day clozapine 200 mg PO BEDTIME divalproex ER (Depakote ER) 1,000 mg PO DAILY dulaglutide (Trulicity) 3 mg (0.5 mL) subcut QWEEK empagliflozin (Jardiance) 25 mg PO QAM haloperidol 2.5 mg PO daily; insulin glargine (Lantus Solostar U-100 Insulin) 36 units (0.36 mL) subcut QPM lancets (Pure Comfort Safety Lancets) 1 gauge miscellaneous BID lisinopril 5 mg PO DAILY metformin ER take 2 tablets or 1000 mg in the morning with breakfast and 500 mg or 1 tablet at night with supper 3 months methylphenidate HCl (Ritalin) 5 mg PO DAILY metoprolol succinate ER 100 mg PO QAM multivitamin with folic acid 400 mcg (Tab-A-Yesica) 1 tab PO DAILY omeprazole 20 mg PO DAILY pen needle, diabetic (Comfort EZ Pen [place]) As directed to inject insulin daily pen needle, diabetic (Comfort EZ Pen [place]) One daily [id number] pioglitazone 15 mg PO DAILY Tobacco use date assessed: 04/24/24 Dental Screening Dental Screen Date: 04/24/24 Did you have a dental visit in the last 12 months?: No Did you have a dental problem in the last 6 months where you did not have access to dental care?: No Was dental information given to patient?: No PFSH Medical History Mammogram declined Papanicolaou smear declined Colonoscopy refused Type 2 diabetes mellitus with hyperglycemia, with long-term current use of insulin Heavy cigarette smoker (20-39 per day) Smoker unmotivated to quit Obesity due to excess calories Schizophrenia ADD (attention deficit disorder) GERD (gastroesophageal reflux disease) Diabetes mellitus type 2 with retinopathy Hyperlipidemia LDL goal <100 Essential hypertension Family History Mother Mental health disorder Other Unknown family medical history Social History Household Members: None Housing: Other Housing Other:: [facility] independent living Patient Tobacco Use Status: Current everyday Tobacco user Cigarette Packs Per Day: 1.25 Cigarettes Per Day: 25 e-Cigarette/Vaping Use: Never Used Second Hand Smoke Exposure: No Current occupational status: disabled Cognitive needs: No Hearing needs: No Vision needs: No Questionnaire PHQ-9 Over the last 2 weeks, how often have you been bothered by any of the following problems? 1. Little interest or pleasure in doing things: several days 2. Feeling down, depressed, or hopeless: several days 3. Trouble falling or staying asleep, or sleeping too much: not at all 4. Feeling tired or having little energy: more than half the days 5. Poor appetite or overeating: not at all 6. Feeling bad about yourself - or that you are a failure or have let yourself or your family down: not at all 7. Trouble concentrating on things, such as reading the newspaper or watching television: not at all 8. Moving or speaking so slowly that other people could have noticed. Or the opposite - being so fidgety or restless that you have been moving around a lot more than usual: not at all 9. Thoughts that you would be better off or of hurting yourself in some way: not at all Total score: 4 Depression Screening Interpretation: Negative Depression Screening Done: Yes 74230 - PHQ-9 Billing: Yes Source: Developed by Drs. Chong Jeffries, Mary Suh, Baldev Dennis and colleagues, with an educational scar from [employer]. Thrive Questionnaire Date Thrive assessed: 04/24/24 I am a: Patient What is your living situation today?: I have a steady place to live Within the past 12 months, did the food you bought not last and you didn't have the money to get more?: Often true Within the past 12 months, did you worry whether your food would run out before you got money to buy more?: Sometimes True Do you have trouble paying for medicines?: I choose not to answer this question Do you have trouble getting transportation to medical appointments?: No Do you have trouble paying your heating and electricity bill?: I choose not to answer this question Do you have trouble taking care of your child, family member or friend?: I choose not to answer this question Do you have trouble with day-to-day activities such as bathing, preparing meals, shopping, managing finances, etc.?: I choose not to answer this question Are you currently unemployed and looking for a job?: I choose not to answer this question Are you interested in more education?: I choose not to answer this question Please select the resources that you would like help with: None Currently or been in a relationship where the following occur: I choose not to answer THRIVE Score: 2 AUDIT C Alcohol Use Questionnaire (AUDIT-C) 1. How often do you have a drink containing alcohol?: Never 3. How often do you have six or more drinks on one occasion?: Never Total Score: 0 Score Reviewed/Action Taken: Yes SAMMI-7 AMB Questionnaire SAMMI-7 Date SAMMI - 7 assessed: 04/24/24 Feeling nervous, anxious, or on edge: 1 = Several days Not being able to stop or control worryin = Several days Worrying too much about different things: 0 = Not at all Trouble relaxin = Several days Being so restless that it is hard to sit still: 0 = Not at all Becoming easily annoyed or irritable: 1 = Several days Feeling afraid as if something awful might happen: 0 = Not at all Total SAMMI-7 score (0-4 normal; 5-9 mild; 10-14 moderate; 15-21 severe): 4 Source: Developed by Drs. Chong Jeffries, Mary Suh, Baldev Dennis and colleagues, with an educational scar from [employer]. SAMMI-7 Assessment Billing SAMMI-7 Assessment Tool: SAMMI-7 Assessment 02986 Physical exam (Primary Care) Vital Signs: Last Vital Signs Pulse 98 04/24/24 12:04 BP 112/72 04/24/24 12:04 Pulse Ox 93 04/24/24 12:04 Oxygen Delivery Method Room Air 04/24/24 12:04 BMI result Body Mass Index 26.1 Tobacco/Smoking Status: Tobacco use Status Tobacco use date assessed 04/24/24 04/24/24 12:05 Patient Tobacco Use Status Current everyday Tobacco 04/24/24 12:05 e-Cigarette/Vaping Use Never Used 04/24/24 12:05 PHQ-9: PHQ-9 Score PHQ-9: Total score 4 04/24/24 12:34 Depression Screening Interpretation: Negative Thrive Assessment: Date of Thrive Assessment Date Thrive assessed 04/24/24 04/24/24 12:05 Currently or been in a relationship where the following occur: I choose not to answer Results AMB Hemoglobin A1c AMB Hemoglobin A1c 7.9 % Last Edit by CHIQUITA Stewart on 04/24/24 13:00 Coding Level of Care Code Est Pt Level 4 (68440) Complex EM visit Add On G2211 Diagnoses Type 2 diabetes mellitus with hyperglycemia, with long-term current use of insulin E11.65; Z79.4 Smoker unmotivated to quit F17.200 Additional Codes SAMMI-7 Assessment Billing - SAMMI-7 Assessment Tool: SAMMI-7 Assessment 55167 ([id number]) PHQ-9 - 96413 - PHQ-9 Billing: Yes ([id number]) Assessment & Plan Assessment & Plan (1) Type 2 diabetes mellitus with hyperglycemia, with long-term current use of insulin: Code(s): E11.65 - Type 2 diabetes mellitus with hyperglycemia; Z79.4 - intermediate designer (current) use of insulin Category: Medical (2) Smoker unmotivated to quit: Code(s): F17.200 - Nicotine dependence, unspecified, uncomplicated Category: Social Hx Orders: Orders Microalbumin, Random (w Creat) Today E11.65 - Type 2 diabetes mellitus with hyperglycemia, F17.200 - Nicotine dependence, unspecified, uncomplicated, Z78.0 - Asymptomatic menopausal state, Z79.4 - intermediate designer (current) use of insulin Aspartate Amino Transferase Today E11.65 - Type 2 diabetes mellitus with hyperglycemia, F17.200 - Nicotine dependence, unspecified, uncomplicated, Z78.0 - Asymptomatic menopausal state, Z79.4 - intermediate designer (current) use of insulin Alanine Aminotransferase Today E11.65 - Type 2 diabetes mellitus with hyperglycemia, F17.200 - Nicotine dependence, unspecified, uncomplicated, Z78.0 - Asymptomatic menopausal state, Z79.4 - intermediate designer (current) use of insulin AMB Hemoglobin A1c Today Z13.9 - Encounter for screening, unspecified Lipid Panel Today E11.65 - Type 2 diabetes mellitus with hyperglycemia, F17.200 - Nicotine dependence, unspecified, uncomplicated, Z78.0 - Asymptomatic menopausal state, Z79.4 - care home (current) use of insulin Complete Blood Count Auto Diff Today E11.65 - Type 2 diabetes mellitus with hyperglycemia, F17.200 - Nicotine dependence, unspecified, uncomplicated, Z78.0 - Asymptomatic menopausal state, Z79.4 - care home (current) use of insulin Basic Metabolic Panel Fasting Today E11.65 - Type 2 diabetes mellitus with hyperglycemia, F17.200 - Nicotine dependence, unspecified, uncomplicated, Z78.0 - Asymptomatic menopausal state, Z79.4 - care home (current) use of insulin Vitamin D 25-OH Total Today E11.65 - Type 2 diabetes mellitus with hyperglycemia, F17.200 - Nicotine dependence, unspecified, uncomplicated, Z78.0 - Asymptomatic menopausal state, Z79.4 - intermediate designer (current) use of insulin
== END 2024-04-24 12:38 | disposition home or self-care (01) ==
PROVIDERS: PCP Internal Medicine; Visit Provider Internal Medicine
DX: Z13.9 Encounter for screening, unspecified (principal)

== ENCOUNTER → 2024-04-24 11:42 | Outpatient (BNVA) | payer OTHER, SELFPAY | PROVIDERS: PCP Internal Medicine; Visit Provider Internal Medicine | DX: E11.65 Type 2 diabetes mellitus with hyperglycemia (principal); I10 Essential (primary) hypertension; F17.200 Nicotine dependence, unspecified, uncomplicated; Z79.4 Long term (current) use of insulin; Z71.6 Tobacco abuse counseling | CPT/HCPCS: 83036; 96127; 99212 ==

== ENCOUNTER 2024-05-05 14:52 | Outpatient (REF) | payer OTHER, SELFPAY ==
[2024-05-05 16:21] LABS: MANUAL DIFF FLAG NO
[2024-05-05 16:38] LABS: Basophils Percent Auto 0.4 % (0-2); Eosinophils Absolute Auto 0.1 X10*3/uL (0.0-0.4); Eosinophils Percent Auto 0.8 % (0-4); Hematocrit 44.6 % (37.0-47.0); Hemoglobin 14.8 g/dl (12.0-16.0); Imm Gran Abs Auto 0.03 X10*3/uL (0.00-0.03); Imm Gran Pct Auto 0.4 % (0.0-0.4); Lymphocytes Absolute Auto 1.9 X10*3/uL (1.2-4.9); Lymphocytes Percent Auto 24.1 % (20-40); Mean Corpuscular HGB Conc 33.2 g/dl (31.0-35.0); Mean Corpuscular Hemoglobin 30.8 pg (27.0-33.0); Mean Corpuscular Volume 92.7 fL (80.0-98.0); Mean Platelet Volume 10.8 fL (9.4-12.3); Monocytes Absolute Auto 0.7 X10*3/uL (0.1-1.2); Monocytes Percent Auto 9.5 % (2-11); Neutrophils Percent Auto 64.8 % (45-73); Platelet Count 278 X10*3/uL (160-400); Red Blood Count 4.81 X10*6/uL (4.20-5.50); Red Cell Distribution Width 13.4 % (11.0-16.0); White Blood Count 7.8 X10*3/uL (4.8-10.8)
[2024-05-05 16:57] LABS: Creatinine Urine 23.16 mg/dL; Microalbumin Urine < 5.0 mg/L
[2024-05-05 17:08] LABS: Alanine Aminotransferase 24 U/L (0-31); Anion Gap 14 (12-20); Aspartate Amino Transferase 37 U/L (5-31); Blood Urea Nitrogen 15 mg/dL (9-16); Calcium 9.3 mg/dL (8.4-10.2); Carbon Dioxide 27 mmol/L (22-29); Chloride 98 mmol/L (96-108); Cholesterol 136 mg/dL (<200); Estimated Glomerular Filt Rate > 60; Glucose Fasting 199 mg/dL (60-99); HDL Cholesterol 36 mg/dL (>40); LDL Cholesterol Calculated 71 mg/dL (<100); Sodium 135 mmol/L (135-145); Triglycerides 146 mg/dL (<150)
[2024-05-05 17:09] LABS: Vitamin D 25-OH Total 40.2 ng/mL (>30)
== END 2024-05-05 14:53 | disposition home or self-care (01) ==
LOC: HO.HMGCLDS 14:52
PROVIDERS: PCP Internal Medicine; Visit Provider Internal Medicine
DX: F17.200 Nicotine dependence, unspecified, uncomplicated (principal); E11.65 Type 2 diabetes mellitus with hyperglycemia; Z79.4 Long term (current) use of insulin; Z78.0 Asymptomatic menopausal state
CPT/HCPCS: 36415; 80048; 80061; 82306; 82570; 84450; 84460; 85025

== ENCOUNTER 2024-06-25 13:23 | Outpatient (REF) | payer OTHER, SELFPAY ==
[2024-06-25 16:33] LABS: MANUAL DIFF FLAG NO
[2024-06-25 16:47] LABS: Basophils Absolute Auto 0.1 X10*3/uL (0.0-0.2); Basophils Percent Auto 0.5 % (0-2); Eosinophils Percent Auto 0.3 % (0-4); Hemoglobin 14.9 g/dl (12.0-16.0); Imm Gran Abs Auto 0.05 X10*3/uL (0.00-0.03); Imm Gran Pct Auto 0.5 % (0.0-0.4); Lymphocytes Absolute Auto 3.1 X10*3/uL (1.2-4.9); Lymphocytes Percent Auto 31.6 % (20-40); Mean Corpuscular HGB Conc 33.1 g/dl (31.0-35.0); Mean Corpuscular Volume 93.6 fL (80.0-98.0); Mean Platelet Volume 10.8 fL (9.4-12.3); Monocytes Absolute Auto 0.6 X10*3/uL (0.1-1.2); Monocytes Percent Auto 6.6 % (2-11); Neutrophils Absolute Auto 5.9 x10*3/uL (2.0-8.3); Neutrophils Percent Auto 60.5 % (45-73); Platelet Count 238 X10*3/uL (160-400); Red Blood Count 4.81 X10*6/uL (4.20-5.50); Red Cell Distribution Width 13.6 % (11.0-16.0); White Blood Count 9.8 X10*3/uL (4.8-10.8)
== END 2024-06-25 13:24 | disposition home or self-care (01) ==
LOC: HO.HMGCLR 13:23
PROVIDERS: PCP Internal Medicine
DX: Z79.899 Other long term (current) drug therapy (principal)
CPT/HCPCS: 36415; 85025

== ENCOUNTER 2024-07-22 09:40 | Outpatient (REF) | payer OTHER, SELFPAY | END 2024-07-22 09:41 | disposition home or self-care (01) | LOC: HO.LAB 09:40 | PROVIDERS: PCP Internal Medicine; Visit Provider Internal Medicine | DX: Z13.89 Encounter for screening for other disorder (principal) ==

== ENCOUNTER 2024-11-11 14:27 | Outpatient (REF) | payer OTHER, SELFPAY ==
[2024-11-11 16:12] LABS: MANUAL DIFF FLAG NO
[2024-11-11 16:16] LABS: Hematocrit 43.3 % (37.0-47.0); Hemoglobin 14.7 g/dl (12.0-16.0); Imm Gran Abs Auto 0.05 X10*3/uL (0.00-0.03); Imm Gran Pct Auto 0.5 % (0.0-0.4); Lymphocytes Absolute Auto 3.9 X10*3/uL (1.2-4.9); Mean Corpuscular HGB Conc 33.9 g/dl (31.0-35.0); Mean Corpuscular Hemoglobin 31.7 pg (27.0-33.0); Mean Corpuscular Volume 93.3 fL (80.0-98.0); NRBC Abs Auto 0.000 X10*3/uL (0.0-0.012); NRBC Pct Auto 0.0 /100WBC (0.0-0.2); Platelet Count 267 X10*3/uL (160-400); Red Blood Count 4.64 X10*6/uL (4.20-5.50); White Blood Count 10.6 X10*3/uL (4.8-10.8)
== END 2024-11-11 14:28 | disposition home or self-care (01) ==
LOC: HO.HMGCLDS 14:27
PROVIDERS: PCP Internal Medicine; Visit Provider Psychiatry & Neurology Psychiatry
DX: Z79.899 Other long term (current) drug therapy (principal)
CPT/HCPCS: 36415; 85025

== ENCOUNTER 2025-01-13 11:53 | Outpatient (AMB) | payer OTHER, SELFPAY ==
--- NOTE | 2025-01-13 12:34 | A.OFFPC_ITS ---
Vital Signs 01/13/25 12:35 Height 5 ft 3 in Weight 150 lb BMI 26.6 BP 100/60 Blood Pressure Location Rt brachial Position Sitting Respiration 16 Pulse 95 Pulse Source Pulse Oximeter Temp 98.0 F Temp Source Oral Pulse Oximetry (%) 98 Oxygen Delivery Method Room Air Intake Visit Reasons: Reschedule 3 months f/up- A1c due Intake Note: Pt is here today for her 3mo. f/u Allergies influenza virus vaccine, specific (Influenza Virus Vacc,Specific) Allergy ( Intermediate, Verified 01/13/25 12:43) UNKNOWN fluvoxamine (From Luvox) Allergy (Unknown, Verified 01/13/25 12:43) Rash latex Allergy (Unknown, Verified 01/13/25 12:43) Rash seafood Allergy (Unknown, Verified 01/13/25 12:43) Rash Medication List - Last Reconciled 01/13/25 by Sandi Molina MD alcohol swabs (Alcohol Prep Pads) 1 pad topical QID aspirin 81 mg PO DAILY atorvastatin (Lipitor) 20 mg PO DAILY benztropine mg PO blood sugar diagnostic (FreeStyle Lite Strips) Check fasting glucose twice a day before meals blood sugar diagnostic (FreeStyle Lite Strips) As directed twice a day clozapine 200 mg PO BEDTIME divalproex ER (Depakote ER) 1,000 mg PO DAILY dulaglutide (Trulicity) 3 mg (0.5 mL) subcut QWEEK empagliflozin (Jardiance) 25 mg PO QAM haloperidol 2.5 mg PO daily; insulin glargine (Lantus Solostar U-100 Insulin) 36 units (0.36 mL) subcut QPM lancets (Pure Comfort Safety Lancets) 1 gauge miscellaneous BID lisinopril 5 mg PO DAILY metformin ER take 2 tablets or 1000 mg in the morning with breakfast and 500 mg or 1 tablet at night with supper 3 months methylphenidate HCl (Ritalin) 5 mg PO DAILY metoprolol succinate ER 100 mg PO QAM multivitamin with folic acid 400 mcg (Tab-A-Yesica) 1 tab PO DAILY omeprazole 20 mg PO DAILY pen needle, diabetic (Comfort EZ Pen Max) One daily [id number] pen needle, diabetic (Comfort EZ Pen Max) As directed to inject insulin daily pioglitazone 15 mg PO DAILY Tobacco use date assessed: 01/13/25 Dental Screening Dental Screen Date: 04/24/24 [facility] Medical History Mammogram declined Papanicolaou smear declined Colonoscopy refused Type 2 diabetes mellitus with hyperglycemia, with long-term current use of insulin Heavy cigarette smoker (20-39 per day) Smoker unmotivated to quit Obesity due to excess calories Schizophrenia ADD (attention deficit disorder) GERD (gastroesophageal reflux disease) Diabetes mellitus type 2 with retinopathy Hyperlipidemia LDL goal <100 Essential hypertension Family History Mother Mental health disorder Other Unknown family medical history Social History Household Members: None Housing: Other Housing Other:: [facility] independent living Patient Tobacco Use Status: Current everyday Tobacco user Cigarette Packs Per Day: 1.25 Cigarettes Per Day: 25 e-Cigarette/Vaping Use: Never Used Second Hand Smoke Exposure: No Current occupational status: disabled Cognitive needs: No Hearing needs: No Vision needs: No Questionnaire Thrive Questionnaire Date Thrive assessed: 04/24/24 I am a: Patient What is your living situation today?: I have a steady place to live Within the past 12 months, did the food you bought not last and you didn't have the money to get more?: Often true Within the past 12 months, did you worry whether your food would run out before you got money to buy more?: Sometimes True Do you have trouble paying for medicines?: I choose not to answer this question Do you have trouble getting transportation to medical appointments?: No Do you have trouble paying your heating and electricity bill?: I choose not to answer this question Do you have trouble taking care of your child, family member or friend?: I choose not to answer this question Do you have trouble with day-to-day activities such as bathing, preparing meals, shopping, managing finances, etc.?: I choose not to answer this question Are you currently unemployed and looking for a job?: I choose not to answer this question Are you interested in more education?: I choose not to answer this question Please select the resources that you would like help with: None Currently or been in a relationship where the following occur: I choose not to answer THRIVE Score: 2 SAMMI-7 AMB Questionnaire SAMMI-7 Date SAMMI - 7 assessed: 04/24/24 Source: Developed by Drs. Chong Jeffries, Mary Suh, Baldev Dennis and colleagues, with an educational scar from [employer]. Physical exam (Primary Care) BMI result Body Mass Index 26.6 Tobacco/Smoking Status: Tobacco use Status Tobacco use date assessed 04/24/24 01/13/25 12:35 Patient Tobacco Use Status Current everyday Tobacco 01/13/25 12:35 e-Cigarette/Vaping Use Never Used 01/13/25 12:35 Thrive Assessment: Date of Thrive Assessment Date Thrive assessed 04/24/24 01/13/25 12:35 Currently or been in a relationship where the following occur: I choose not to answer Results AMB Hemoglobin A1c AMB Hemoglobin A1c 9.5 % Last Edit by Xiomara Jensen CMA on 01/13/25 12:54 Results Reviewed Results Reviewed: Name: Mariah Brown Age/Sex: 54/F : 1970 Unit#: [id number] Attend Dr: RADHA ALVARES MD Re11/11/24 Status: DEP REF Location: [facility] Disch: SPEC : [id number] VANGIE: 11/11/24 STATUS: COMP REQ : [id number] RECD: 11/11/[address]: RADHA ALVARES MD COMP: 11/11/24 ENTERED: 11/11/24-[address]: Sandi Molina MD ORDERED: CBC Auto Diff Test Result Flag Reference WBC 10.6 4.8-10.8 X10*3/uL RBC 4.64 4.20-5.50 X10*6/uL HGB 14.7 12.0-16.0 g/dl HCT 43.3 37.0-47.0 % MCV 93.3 80.0-98.0 fL MCH 31.7 27.0-33.0 pg MCHC 33.9 31.0-35.0 g/dl RDW 14.0 11.0-16.0 % PLT 267 160-400 X10*3/uL MPV 10.9 9.4-12.3 fL Neut Pct Auto 53.8 45-73 % ImGran Pct Auto 0.5 H 0.0-0.4 % Lymp Pct Auto 37.3 20-40 % Holt Pct Auto 7.4 2-11 % Eos Pct Auto 0.5 0-4 % Baso Pct Auto 0.5 0-2 % NRBC Pct Auto 0.0 0.0-0.2 /100WBC ANC Neut Abs # 5.7 2.0-8.3 x10*3/uL ImGran Abs Auto 0.05 H 0.00-0.03 X10*3/uL Lymph Abs Auto 3.9 1.2-4.9 X10*3/uL Holt Abs Auto 0.8 0.1-1.2 X10*3/uL Eos Abs Auto 0.1 0.0-0.4 X10*3/uL Baso Abs Auto 0.1 0.0-0.2 X10*3/uL NRBC Coding Level of Care Code Est Pt Level 4 (88246) Complex EM visit Add On G2211 Diagnoses Type 2 diabetes mellitus with hyperglycemia, with long-term current use of insulin E11.65; Z79.4 Essential hypertension I10 Class 1 obesity due to excess calories with serious comorbidity and body mass index (BMI) of 33.0 to 33.9 in adult E66.09; Z68.33 Obesity classification: adult class 1 (BMI 30 - 34.9) Serious obesity comorbidity presence: with serious comorbidity Body mass index: BMI 33.0-33.9 Assessment & Plan Assessment & Plan (1) Type 2 diabetes mellitus with hyperglycemia, with long-term current use of insulin: Code(s): E11.65 - Type 2 diabetes mellitus with hyperglycemia; Z79.4 - termite control representative (current) use of insulin Category: Medical (2) Essential hypertension: Code(s): I10 - Essential (primary) hypertension Category: Medical (3) Obesity due to excess calories: Code(s): E66.09 - Other obesity due to excess calories Category: Medical Qualifiers: Obesity classification: adult class 1 (BMI 30 - 34.9) Serious obesity comorbidity presence: with serious comorbidity Body mass index: BMI 33.0-33.9 Qualified Code(s): E66.09 - Other obesity due to excess calories; Z68.33 - Body mass index [BMI] 33.0-33.9, adult Orders: Orders AMB Hemoglobin A1c Today Z13.9 - Encounter for screening, unspecified Lipid Panel Today E11.65 - Type 2 diabetes mellitus with hyperglycemia, E66.09 - Other obesity due to excess calories, I10 - Essential (primary) hypertension, Z68.33 - Body mass index [BMI] 33.0-33.9, adult, Z79.4 - retirement (current) use of insulin Aspartate Amino Transferase Today E11.65 - Type 2 diabetes mellitus with hyperglycemia, E66.09 - Other obesity due to excess calories, I10 - Essential (primary) hypertension, Z68.33 - Body mass index [BMI] 33.0-33.9, adult, Z79.4 - termite control representative (current) use of insulin Basic Metabolic Panel Fasting Today E11.65 - Type 2 diabetes mellitus with hyperglycemia, E66.09 - Other obesity due to excess calories, I10 - Essential (primary) hypertension, Z68.33 - Body mass index [BMI] 33.0-33.9, adult, Z79.4 - retirement (current) use of insulin Alanine Aminotransferase Today E11.65 - Type 2 diabetes mellitus with hyperglycemia, E66.09 - Other obesity due to excess calories, I10 - Essential (primary) hypertension, Z68.33 - Body mass index [BMI] 33.0-33.9, adult, Z79.4 - retirement (current) use of insulin Medications: New Ozempic (semaglutide) for 4 weeks 0.25 mg (0.368 mL) subcut QWEEK 3 mL 2RF 30 days NS E11.65 - Ty pe 2 diabetes mellitus with hyperglycemia, E66.09 - Other obesity due to excess calories, I10 - Essential (primary) hypertension, Z68.33 - Body mass index [BMI] 33.0-33.9, adult, Z79.4 - termite control representative (current) use of insulin metformin ER (Glumetza) 1,000 mg PO BID 60 tabs 5RF 30 days E11.65 - Type 2 diabetes mellitus with hyperglycemia, Z79.4 - retirement (current) use of insulin Discontinued metformin ER Discontinued Reason: Doctor's Order take 2 tablets or 1000 mg in the morning with breakfast and 500 mg or 1 tablet at night with supper 3 months 180 tabs 3RF E11.65 - Type 2 diabetes mellitus with hyperglycemia, Z79.4 - termite control representative (current) use of insulin
[2025-01-13 12:35] VITALS: BP 100/60; PULSE 95; RESP 16; TEMP 36.7; O2SAT 98; BMI 26.6
== END 2025-01-13 13:09 | disposition home or self-care (01) ==
LOC: HO.HMCC 11:54
PROVIDERS: PCP Internal Medicine; Visit Provider Internal Medicine
DX: Z13.9 Encounter for screening, unspecified (principal)

== ENCOUNTER → 2025-01-13 11:53 | Outpatient (BNVA) | payer OTHER, SELFPAY | PROVIDERS: PCP Internal Medicine; Visit Provider Internal Medicine | DX: E11.65 Type 2 diabetes mellitus with hyperglycemia (principal); E78.5 Hyperlipidemia, unspecified; I10 Essential (primary) hypertension; F17.210 Nicotine dependence, cigarettes, uncomplicated; Z79.899 Other long term (current) drug therapy; Z79.84 Long term (current) use of oral hypoglycemic drugs; Z79.4 Long term (current) use of insulin | CPT/HCPCS: 83036; 99212 ==

== ENCOUNTER 2025-01-29 07:06 | Outpatient (REF) | payer OTHER, SELFPAY ==
[2025-01-29 08:07] LABS: Alanine Aminotransferase 22 U/L (0-31); Anion Gap 12 (12-20); Aspartate Amino Transferase 27 U/L (5-31); Blood Urea Nitrogen 14 mg/dL (9-16); Calcium 9.3 mg/dL (8.4-10.2); Carbon Dioxide 28 mmol/L (22-29); Chloride 107 mmol/L (96-108); Cholesterol 199 mg/dL (<200); Estimated Glomerular Filt Rate > 60; HDL Cholesterol 39 mg/dL (>40); Potassium 4.4 mmol/L (3.3-5.1); Sodium 143 mmol/L (135-145); Triglycerides 211 mg/dL (<150)
== END 2025-01-29 07:07 | disposition home or self-care (01) ==
LOC: HO.LAB 07:06
PROVIDERS: PCP Internal Medicine; Visit Provider Internal Medicine
DX: I10 Essential (primary) hypertension (principal); E11.65 Type 2 diabetes mellitus with hyperglycemia; E66.09 Other obesity due to excess calories; Z68.33 Body mass index [BMI] 33.0-33.9, adult; Z79.4 Long term (current) use of insulin
CPT/HCPCS: 36415; 80048; 80061; 83036; 84450; 84460

== ENCOUNTER 2025-02-23 16:21 | Outpatient (REF) | payer OTHER, SELFPAY | END 2025-02-23 16:22 | disposition home or self-care (01) | LOC: HO.LNP 16:21 | PROVIDERS: Visit Provider Internal Medicine | DX: I10 Essential (primary) hypertension (principal); E11.65 Type 2 diabetes mellitus with hyperglycemia; Z79.4 Long term (current) use of insulin | CPT/HCPCS: 82043; 82570 ==

== ENCOUNTER 2025-02-24 14:59 | Outpatient (AMB) | payer OTHER, SELFPAY ==
[2025-02-24 15:05] VITALS: BP 90/60; PULSE 77; RESP 16; TEMP 36.4; O2SAT 100; BMI 27.8
--- NOTE | 2025-02-24 15:05 | MHC.PC.OV ---
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 Allergies influenza virus vaccine, specific (Influenza Virus Vacc,Specific) Allergy (Intermediate, Verified 03/02/25 00:48) UNKNOWN fluvoxamine (From Luvox) Allergy (Unknown, Verified 03/02/25 00:48) Rash latex Allergy (Unknown, Verified 03/02/25 00:48) Rash seafood Allergy (Unknown, Verified 03/02/25 00:48) Rash Medication List - Last Reconciled 02/24/25 by Sandi Molina MD alcohol swabs (Alcohol Prep Pads) 1 pad topical QID aspirin 81 mg PO DAILY atorvastatin (Lipitor) 20 mg PO DAILY blood sugar diagnostic (FreeStyle Lite Strips) Check fasting glucose twice a day before meals blood sugar diagnostic (FreeStyle Lite Strips) As directed twice a day clozapine 200 mg PO BEDTIME divalproex ER (Depakote ER) 1,000 mg PO DAILY dulaglutide (Trulicity) 3 mg (0.5 mL) subcut QWEEK empagliflozin (Jardiance) 25 mg PO QAM haloperidol 2.5 mg PO daily; insulin glargine (Lantus Solostar U-100 Insulin) 36 units (0.36 mL) subcut QPM lancets (Pure Comfort Safety Lancets) 1 gauge miscellaneous BID lisinopril 5 mg PO DAILY metformin ER (Glumetza) 1,000 mg PO BID 30 days methylphenidate HCl (Ritalin) 5 mg PO DAILY metoprolol succinate ER 100 mg PO QAM multivitamin with folic acid 400 mcg (Tab-A-Yesica) 1 tab PO DAILY omeprazole 20 mg PO DAILY pen needle, diabetic (Comfort EZ Pen [place]) One daily [id number] pen needle, diabetic (Comfort EZ Pen [place]) As directed to inject insulin daily pioglitazone 15 mg PO DAILY Tobacco use date assessed: 02/24/25 Dental Screening Dental Screen Date: 02/24/25 Did you have a dental visit in the last 12 months?: No Did you have a dental problem in the last 6 months where you did not have access to dental care?: No Was dental information given to patient?: Patient declined HPI Annual PE HPI Details The patient is a 54-year-old female presenting for a follow-up visit for diabetes management. Her last HbA1c was 9.5% in January 2023, which has since improved to 7.7% as of the most recent test done 01/29/25 Her diabetes medication regimen includes metformin 1000 mg in the morning and 500 mg at night, Lantus insulin, Trulicity, Jardiance, and pioglitazone. A recent attempt was made to switch her from Trulicity to Ozempic to improve glycemic control and promote weight loss, but the medication was denied by her insurance. The patient has a good appetite and acknowledges frequent snacking, especially at night. The patient is postmenopausal and reports experiencing very dry skin. In terms of preventative care, she is allergic to the flu shot, has received a pneumonia vaccine, and has completed a three-dose COVID-19 vaccination series. She has deferred getting an annual eye exam, mammogram, and Pap smear. HPI Comments History of Present Illness Details Chief Complaint The patient presents for a follow-up visit to manage her diabetes, specifically to address medication changes after her prescription for Ozempic was denied. History of Present Illness The patient is a 54-year-old female presenting for a follow-up visit for diabetes management. Her last HbA1c was 9.5% in January 2023, which has since improved to 7.7% as of the most recent reading. Her diabetes medication regimen includes metformin 1000 mg in the morning and 500 mg at night, Lantus insulin, Trulicity, Jardiance, and pioglitazone. A recent attempt was made to switch her from Trulicity to Ozempic to improve glycemic control and promote weight loss, but the medication was denied by her insurance. The patient has a good appetite and acknowledges frequent snacking, especially at night. The patient is postmenopausal and reports experiencing very dry skin. In terms of preventative care, she is allergic to the flu shot, has received a pneumonia vaccine, and has completed a three-dose COVID-19 vaccination series. She has deferred her annual eye exam, mammogram, and Pap smear. [facility] Medical History Mammogram declined Papanicolaou smear declined Colonoscopy refused Type 2 diabetes mellitus with hyperglycemia, with long-term current use of insulin Heavy cigarette smoker (20-39 per day) Smoker unmotivated to quit Obesity due to excess calories Schizophrenia ADD (attention deficit disorder) GERD (gastroesophageal reflux disease) Diabetes mellitus type 2 with retinopathy Hyperlipidemia LDL goal <100 Essential hypertension Family History Mother Mental health disorder Other Unknown family medical history Social History Household Members: None Housing: Other Housing Other:: [facility] independent living Patient Tobacco Use Status: Current everyday Tobacco user Cigarette Packs Per Day: 1.25 Cigarettes Per Day: 25 e-Cigarette/Vaping Use: Never Used Second Hand Smoke Exposure: No Current occupational status: disabled Cognitive needs: No Hearing needs: No Vision needs: No Questionnaire PHQ-9 Over the last 2 weeks, how often have you been bothered by any of the following problems? Depression Screening Interpretation: Positive (Followed by Eleazar Robert) Depression Screening Follow-up: Existing condition, In treatment and Community Mental Health Worker F/U Depression Screening Done: Yes Source: Developed by Drs. Chong Jeffries, Mary Suh, Baldev Dennis and colleagues, with an educational scar from [employer]. Thrive Questionnaire Date Thrive assessed: 04/24/24 I am a: Patient What is your living situation today?: I have a steady place to live Within the past 12 months, did the food you bought not last and you didn't have the money to get more?: Often true Within the past 12 months, did you worry whether your food would run out before you got money to buy more?: Sometimes True Do you have trouble paying for medicines?: I choose not to answer this question Do you have trouble getting transportation to medical appointments?: No Do you have trouble paying your heating and electricity bill?: I choose not to answer this question Do you have trouble taking care of your child, family member or friend?: I choose not to answer this question Do you have trouble with day-to-day activities such as bathing, preparing meals, shopping, managing finances, etc.?: I choose not to answer this question Are you currently unemployed and looking for a job?: I choose not to answer this question Are you interested in more education?: I choose not to answer this question Please select the resources that you would like help with: None Currently or been in a relationship where the following occur: I choose not to answer THRIVE Score: 2 SAMMI-7 AMB Questionnaire SAMMI-7 Date SAMMI - 7 assessed: 04/24/24 Source: Developed by Drs. Chong Jeffries, Mary Suh, Baldev Dennis and colleagues, with an educational scar from [employer]. Review of Systems Narrative Review of Systems - Endocrine: Reports having a good appetite and snacking constantly, especially at night. - Neurological: Denies numbness or tingling in the feet. - Integumentary: Reports very dry skin that causes her to scratch. - Gastrointestinal: Denies diarrhea with metformin use. - Allergic/Immunologic: Reports an allergy to the influenza vaccine. Eyes Reports no additional complaints ENT Reports Normal hearing present Card Reports no additional complaints Resp Reports no additional complaints Neuro Reports Normal hearing present and Denies Sensory deficit (Neuro) Physical exam (Primary Care) Vital Signs: Last Vital Signs Temp 97.5 F 02/24/25 15:05 Pulse 77 02/24/25 15:05 Resp 16 02/24/25 15:05 BP 90/60 02/24/25 15:05 Pulse Ox 100 02/24/25 15:05 Oxygen Delivery Method Room Air 02/24/25 15:05 BMI result Body Mass Index 27.8 Tobacco/Smoking Status: Tobacco use Status Tobacco use date assessed 02/24/25 02/24/25 15:17 Patient Tobacco Use Status Current everyday Tobacco 02/24/25 15:17 e-Cigarette/Vaping Use Never Used 02/24/25 15:17 Are you ready to quit: No Tobacco cessation counseling provided: Yes Depression Screening Interpretation: Positive (Followed by Eleazar Robert) Depression Screening Follow-up: Existing condition, In treatment and Community Mental Health Worker F/U Thrive Assessment: Date of Thrive Assessment Date Thrive assessed 04/24/24 02/24/25 15:17 Currently or been in a relationship where the following occur: I choose not to answer Narrative Physical Exam Const Other: 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 General: no acute distress and alert Nutritional Appearance: obese Orientation/consciousness: patient oriented x3 HENMT Ears: external ears normal General nose exam: Normal external nose present Face and sinus: Yes face symmetric Mouth: moist mucous membranes Eyes Conjunctivae: conjunctivae normal Sclerae: sclerae normal Pupils: Equal, round and reactive pupils present EOM: EOMs intact bilaterally Neck Neck: Yes full ROM and Yes no lymphadenopathy Carotids: normal carotid upstroke Resp Effort & Inspection: normal respiratory effort and able to speak in complete sentences Auscultation: clear to auscultation bilaterally Cardio Rate: regular rate Rhythm: regular rhythm Heart sounds: S1 normal heart sound present and S2 normal heart sound present GI Inspection: Yes normal to inspection Palpation (GI): Soft to palpation Auscultation: normal bowel sounds General: Yes no CVA tenderness Back/Spine/Pelvis Back: no CVA tenderness Neuro General: patient oriented x3, gait normal, moves all extremities and no focal motor deficits Cranial nerves: Yes Equal, round and reactive pupils present and Yes Normal hearing present Gait exam (Neuro): Normal gait present Motor exam (neuro): 5/5 motor strength present throughout Sensory Exam: No Sensory deficit (Neuro) Extrem General: Yes normal to inspection, Yes full ROM, Yes no pedal edema and Yes normal gait Coding Level of Care Code Est Pt Prev Care 40-64y(48131) Diagnoses Type 2 diabetes mellitus with hyperglycemia, with long-term current use of insulin E11.65; Z79.4 Smoker unmotivated to quit F17.200 Essential hypertension I10 Schizophrenia F20.9 GERD (gastroesophageal reflux disease) K21.9 Annual visit for general adult medical examination with abnormal findings Z00.01 Assessment & Plan Assessment & Plan (1) Type 2 diabetes mellitus with hyperglycemia, with long-term current use of insulin: Code(s): E11.65 - Type 2 diabetes mellitus with hyperglycemia; Z79.4 - roasterman (current) use of insulin Category: Medical Plan: The patient's glycemic control has improved, with her HbA1c decreasing from 9.5% to 7.7%, but it remains elevated. The planned switch to Ozempic for better control and weight management was halted due to insurance denial. Late-night snacking contributes to her elevated blood sugars. A referral will be made to podiatry for routine diabetic foot care. increased metformin to 1000 mg twice daily and restart Trulicity 3 mg weekly. She will continue her current dosages of Lantus 36 units at night, Jardiance, and pioglitazone. follow-up appointment is scheduled for May, with blood work to be done prior. (2) Smoker unmotivated to quit: Code(s): F17.200 - Nicotine dependence, unspecified, uncomplicated Category: Social Hx Plan: Patient strongly advised to stop smoking, as smoking damages blood vessels, degenerative of joints and spine, damage to lungs and heart., predisposes to developing certain cancers like lung, breast, bladder, colon. Recommended to try decreasing cigarette use by 1-2 cigarettes a day. Advised to monitor what triggers are for smoking so that this can be discussed on the next office visit. We can discuss different options to quit smoking when ready. (3) Essential hypertension: Code(s): I10 - Essential (primary) hypertension Category: Medical Plan: Blood pressure at goal of less than 130/80. Continue with lisinopril 5 mg daily and metoprolol 100 mg in the morning. Reinforced importance of following a low sodium diet, getting regular exercise, and lowering stress levels. (4) Schizophrenia: Code(s): F20.9 - Schizophrenia, unspecified Category: Medical Plan: Currently followed by psychiatry (5) GERD (gastroesophageal reflux disease): Code(s): K21.9 - Gastro-esophageal reflux disease without esophagitis Category: Medical Plan: Currently on omeprazole 20 mg daily (6) Annual visit for general adult medical examination with abnormal findings: Code(s): Z00.01 - Encounter for general adult medical examination with abnormal findings Plan: Latest fasting lab results reviewed with patient and caregiver. Recommended dental visit every 6 months and regular eye exams, but patient declined. Take adequate calcium in diet and vitamin-D 3 at 2000 IU per cap once a day, in addition to weight-bearing exercises to help maintain good muscle tone and weight control. Instructed to do self-breast exam, and recommended to get yearly mammogram but patient declined breast cancer screening or colonoscopy .She has an allergy to the flu shot and is up to date on her pneumonia and COVID-19 immunizations Plan Patient was informed and verbally consented to the use of an ambient scribe for clinic note documentation during this visit. Orders: Referrals Podiatry Referral E11.65 - Type 2 diabetes mellitus with hyperglycemia, Z79.4 - halfway (current) use of insulin Medications: Changed From dulaglutide 3 mg (0.5 mL) subcut QWEEK 6 mL 4RF To Trulicity (dulaglutide) 3 mg (0.5 mL) subcut QWEEK 2 mL 5RF 30 days NS From insulin glargine 36 units (0.36 mL) subcut QPM 15 mL 5RF E11.9 - Type 2 diabetes mellitus without complications, Z79.4 - halfway (current) use of insulin To insulin glargine (Lantus Solostar U-100 Insulin) 36 units (0.36 mL) subcut QAM 15 mL 5RF E11.9 - Type 2 diabetes mellitus without complications, Z79.4 - roasterman (current) use of insulin Refilled insulin glargine 36 units (0.36 mL) subcut QPM 15 mL 5RF E11.9 - Type 2 diabetes mellitus without complications, Z79.4 - roasterman (current) use of insulin dulaglutide 3 mg (0.5 mL) subcut QWEEK 6 mL 4RF
== END 2025-02-24 15:51 | disposition home or self-care (01) ==
LOC: HO.HMCC 14:59
PROVIDERS: PCP Internal Medicine; Visit Provider Internal Medicine
DX: Z00.01 Encounter for general adult medical examination with abnormal findings (principal); E11.65 Type 2 diabetes mellitus with hyperglycemia; Z79.4 Long term (current) use of insulin; F20.9 Schizophrenia, unspecified; F17.200 Nicotine dependence, unspecified, uncomplicated; I10 Essential (primary) hypertension; K21.9 Gastro-esophageal reflux disease without esophagitis

== ENCOUNTER → 2025-02-24 14:59 | Outpatient (BNVA) | payer OTHER, SELFPAY | PROVIDERS: PCP Internal Medicine; Visit Provider Internal Medicine | DX: Z00.01 Encounter for general adult medical examination with abnormal findings (principal); E11.65 Type 2 diabetes mellitus with hyperglycemia; I10 Essential (primary) hypertension; F20.9 Schizophrenia, unspecified; K21.9 Gastro-esophageal reflux disease without esophagitis; Z79.4 Long term (current) use of insulin; F17.210 Nicotine dependence, cigarettes, uncomplicated | CPT/HCPCS: 99396 ==